=== PATIENT | female | born 1980 | race Caucasian/White ===

== ENCOUNTER 2017-11-03 14:52 | Inpatient (IN) | payer OTHER ==
[2017-11-03 16:49] VITALS: BMI 20.9
--- NOTE | 2017-11-03 18:55 | HP ---
CIWA Score - CIWA Score Nausea/Vomitin Muscle Tremors: 2 Anxiety: 1-Mildly Anxious Agitation: 2 Paroxysmal Sweats: 1-Minimal Palms Moist Orientation: 0-Oriented Tacttile Disturbances: 0-None Auditory Disturbances: 0-None Visual Disturbances: 2-Mild Sensitivity Headache: 2-Mild CIWA-Ar Total Score: 13 Admission ROS BHS - HPI Chief Complaint: " I am here for rehab, my stomach hurts." Allergies/Adverse Reactions: Allergies Allergy/AdvReac Type Severity Reaction Status Date / Time ciprofloxacin [From Cipro] Allergy Verified 11/03/17 17:32 haloperidol [From Haldol] AdvReac Verified 11/03/17 17:32 History of Present Illness: 37 yo female with hx of alcohol dependence is here seeking detox. PMHX: ulcerative colitis, asthma, alcohol induced seizure, depression, anxiety, PTSD, bipolar. Currently denies suicidal / homicidal ideation . Reports hx of suicide attempt by walking into traffic two years ago. Last detox at [facility] 2 years ago. Exam Limitations: No Limitations - Ebola screening Have you traveled outside of the country in the last 21 days: No Have you had contact with anyone from an Ebola affected area: No Have you been sick,other than usual withdrawal symptoms: No Do you have a fever: No - Review of Systems Constitutional: Loss of Appetite, Changes in sleep, Other (weight fluctuates) EENT: reports: No Symptoms Reported Respiratory: reports: No Symptoms reported Cardiac: reports: Palpitations GI: reports: Constipated (last BM three days ago), Nausea, Poor Appetite, Poor Fluid Intake, Indigestion, Abdominal cramping : reports: Frequency (for two day) Musculoskeletal: reports: No Symptoms Reported Integumentary: reports: No Symptoms Reported Neuro: reports: See HPI, Headache, Seizure Endocrine: reports: Increased Thirst Hematology: reports: Anemia Psychiatric: reports: Orientated x3, Depressed Other Systems: Reviewed and Negative Patient History - Patient Medical History Hx Anemia: Yes Hx Asthma: Yes Hx Chronic Obstructive Pulmonary Disease (COPD): No Hx Cancer: No Hx Cardiac Disorders: No Hx Congestive Heart Failure: No Hx Hypertension: No Hx Hypercholesterolemia: No Hx Pacemaker: No HX Cerebrovascular Accident: No Hx Seizures: Yes (R/T ALCOHOL 06/2017) Hx Dementia: No Hx Diabetes: No Hx Gastrointestinal Disorders: No Hx Liver Disease: No Hx Genitourinary Disorders: No Hx Sexually Transmitted Disorders: No Hx Renal Disease (ESRD): No Hx Thyroid Disease: No Hx Human Immunodeficiency Virus (HIV): No (2 years ago ) Hx Hepatitis C: No Hx Depression: Yes Hx Suicide Attempt: Yes (2 years ago ) Hx Bipolar Disorder: Yes Hx Schizophrenia: No - Patient Surgical History Past Surgical History: No Hx Neurologic Surgery: No Hx Cataract Extraction: No Hx Cardiac Surgery: No Hx Lung Surgery: No Hx Breast Surgery: No Hx Breast Biopsy: No Hx Abdominal Surgery: No Hx Appendectomy: No Hx Cholecystectomy: No Hx Genitourinary Surgery: No Hx Section: No Hx Orthopedic Surgery: No Hx Hysterectomy: No - PPD History Previous Implant?: No Documented Results: Negative w/o proof PPD to be Administered?: Yes - Reproductive History Patient is a Female of Child Bearing Age (11 -55 yrs old): Yes Patient : No - Smoking Cessation Smoking history: Never smoked Hx Chewing Tobacco Use: No Initiated information on smoking cessation: No - Substances Abused Alcohol Route: Oral Frequency: Daily Amount used: 09/06OZ uTrack TVS Age of first use: 15 Date of Last Use: 11/03/17 Family Disease History - Family Disease History Family History: Unable to Obtain Admission Physical Exam BHS - Vital Signs Vital Signs: Vital Signs - 24 hr 11/03/17 16:45 Temperature 99 F Pulse Rate 80 Respiratory 18 Rate Blood Pressure 116/63 - Physical General Appearance: Yes: Thin, Anxious HEENTM: Yes: EOMI, Hearing grossly Normal, Normal ENT Inspection, Normocephalic , Normal Voice, Pharynx Normal, Tm's normal, Other (chelithis) Respiratory: Yes: Chest Non-Tender, Lungs Clear, Normal Breath Sounds, No Respiratory Distress, No Accessory Muscle Use Neck: Yes: No masses,lesions,Nodules, Trachea in good position Breast: Yes: Breast Exam Deferred Cardiology: Yes: Regular Rhythm, Regular Rate Abdominal: Yes: Normal Bowel Sounds, Non Tender, Flat, Soft Genitourinary: Yes: Frequency Back: Yes: Normal Inspection Musculoskeletal: Yes: full range of Motion, Gait Steady, Pelvis Stable Extremities: Yes: Normal Capillary Refill, Normal Inspection, Normal Range of Motion, Non-Tender 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: Yes: clip and hanger attacher II-XII NML intact, Fully Oriented, Alert, Motor Strength 5/5, Depressed Affect Integumentary: Yes: Normal Color, Warm, Moist Lymphatic: Yes: Within Normal Limits - Diagnostic (1) Alcohol dependence with withdrawal Current Visit: Yes Status: Acute Qualifiers: Complication of substance-induced condition: uncomplicated Qualified Code(s ): F10.230 - Alcohol dependence with withdrawal, uncomplicated (2) Weight loss Current Visit: Yes Status: Acute (3) Ulcerative colitis Current Visit: Yes Status: Chronic Qualifiers: Ulcerative colitis location: unspecified ulcerative colitis location Digestive disease complication type: unspecified complication Qualified Code(s ): K51.919 - Ulcerative colitis, unspecified with unspecified complications (4) Depression (emotion) Current Visit: Yes Status: Acute Qualifiers: Depression Type: dysthymia Qualified Code(s): F34.1 - Dysthymic disorder (5) Asthma Current Visit: Yes Status: Acute Qualifiers: Asthma severity: mild Asthma persistence: intermittent Asthma complication type: with acute exacerbation Qualified Code(s): J45.21 - Mild intermittent asthma with (acute) exacerbation (6) Alcohol related seizure Current Visit: Yes Status: Acute Cleared for Admission BHS - Detox or Rehab [facility] Level of Care: Medically Managed Detox Regimen/Protocol: Librium [facility] Breath Alcohol Content Breath Alcohol Content: 0 Urine Pregancy Test - Result Urine Test Results: Negative- NO Line Present Urine Drug Screen - Results Drug Screen Negative: Yes
[2017-11-03] MEDS ORDERED: MAGNESIUM CITRATE 300 ML BOTTLE PO PRN (18:57)
[2017-11-03] MEDS ORDERED: P-EPHED 60MG/TRIPROLIDI 2.5MG TABLET PO PRN (18:57)
[2017-11-03] MEDS ORDERED: MAG HYDROX/AL HYDROX/SIMETH 30 ML UNIT-DOSE CUP PO PRN (18:57)
[2017-11-03] MEDS ORDERED: chlordiazePOXIDE HCL 25 MG CAPSULE PO ONE (18:57)
[2017-11-03] MEDS ORDERED: MAGNESIUM HYDROX 2400MG/30ML ORAL SUSPENSION 30 ML CUP PO PRN (18:57)
[2017-11-03] MEDS ORDERED: hydrOXYzine PAMOATE 50 MG CAPSULE (FP) PO PRN (18:57)
[2017-11-03] MEDS ORDERED: chlordiazePOXIDE HCL 25 MG CAPSULE PO PRN (18:57)
[2017-11-03] MEDS ORDERED: LOPERAMIDE HCL 2 MG CAPSULE PO PRN (18:57)
[2017-11-03] MEDS ORDERED: guaiFENesin/D-METHORPHAN HB 10 ML UNIT-DOSE CUPS PO PRN (18:57)
[2017-11-03] MEDS ORDERED: IBUPROFEN 400 MG TABLET (FP) PO PRN (18:57)
[2017-11-03] MEDS ORDERED: MENTHOL/PHENOL 1 EACH UD MM PRN (18:57)
[2017-11-03] MEDS ORDERED: ACETAMINOPHEN 325 MG TABLET (FP) PO PRN (18:57)
[2017-11-03] MEDS ORDERED: diphenhydrAMINE HCL 25 MG CAPSULE (FP) PO PRN (19:00)
[2017-11-03] MEDS ORDERED: ALBUTEROL SO4 18 GM HFA INHALER IH PRN (19:01)
[2017-11-03] MEDS ORDERED: ALBUTEROL SO4 0.083% IH SOL 2.5 MG/3 ML VIAL.NEB. NEB PRN (19:01)
[2017-11-03] MEDS ORDERED: PANTOPRAZOLE 20 MG TABLET (FP) PO SCH (19:15)
[2017-11-03] MEDS ORDERED: MELATONIN 5 MG TABLETS PO PRN (22:00)
[2017-11-03] MEDS ORDERED: THIAMINE HCL 100 MG TABLET (FP) PO SCH (22:00)
[2017-11-03] MEDS: chlordiazePOXIDE HCL 25 MG CAPSULE PO SCH (22:25)
--- NOTE | 2017-11-03 23:10 | PN ---
S Progress Note Note: c/o of constipation and difficulty moving her bowels. Refuse milk of magnesia. Vital Signs Period Temp Pulse Resp BP Sys/Vincent Pulse Ox Last 24 Hr 97.9 F-99 F 67-80 18-18 116-118/63-79 Increase fluids senna and Colace order continue to monitor
[2017-11-03] MEDS ORDERED: SENNOSIDES 8.6MG TABLET (FP) PO SCH (23:15)
[2017-11-03 23:19] LABS: URINE APPEARANCE SLCLOUDY; URINE BILIRUBIN NEGATIVE (<2.0 mg/dL); URINE COLOR LTYELLOW; URINE GLUCOSE (UA) NEGATIVE (NEGATIVE); URINE KETONE TRACE (NEGATIVE); URINE LEUK ESTERASE NEGATIVE (NEGATIVE); URINE NITRITE NEGATIVE (NEGATIVE); URINE PROTEIN NEGATIVE (NEGATIVE); URINE UROBILINOGEN NEGATIVE mg/dL (0.2-1.0)
[2017-11-03 23:35] LABS: EPI CELLS MODERATE /HPF (FEW); URINE BACTERIA RARE /hpf (NONE SEEN); URINE MUCUS RARE
[2017-11-03] MEDS: DOCUSATE SODIUM 100 MG CAPSULE (FP) PO SCH (23:45)
[2017-11-04] MEDS: chlordiazePOXIDE HCL 25 MG CAPSULE PO SCH (05:13)
[2017-11-04 06:13] VITALS: TEMP 97.7
[2017-11-04] MEDS: DOCUSATE SODIUM 100 MG CAPSULE (FP) PO SCH ×2 (07:36→07:40)
[2017-11-04 09:13] VITALS: BP 107/66; PULSE 90
[2017-11-04] MEDS ORDERED: PRENATAL VITAMINS W/ FOLIC ACID TABLET (FP) PO SCH (10:00)
[2017-11-04 10:16] LABS: HEMATOCRIT 33.1 % (32.4-45.2); HEMOGLOBIN 11.3 GM/dL (10.7-15.3); MCH 29.2 pg (25.7-33.7); MEAN CELL VOLUME 85.8 fl (80-96); MEAN PLT VOLUME 9.4 fl (7.5-11.1); PLATELET COUNT 289 K/MM3 (134-434); RBC 3.86 M/mm3 (3.60-5.2); RDW 15.7 % (11.6-15.6); WHITE BLOOD COUNT 7.8 K/mm3 (4.0-10.0)
[2017-11-04 10:29] LABS: CHLORIDE 102 mmol/L (98-107); POTASSIUM 3.6 mmol/L (3.5-5.1); SODIUM 139 mmol/L (136-145)
--- NOTE | 2017-11-04 10:34 | CONSULT ---
[facility] Psychiatric Consult - Data Date of interview: 11/04/17 Admission source: [facility] Identifying data: Patient is a 37 year old single female, mother of two, unemployed, and resides in a correction. This is patient's first admission to [facility]. Patient admitted to for alcohol dependence. Substance Abuse History: Smoking Cessation. Smoking history: Never smoked. Hx Chewing Tobacco Use: No. Initiated information on smoking cessation: No. - Substances Abused. Alcohol. Route: Oral. Frequency: Daily. Amount used: 09/06OZ BEERS. Age of first use: 15. Date of Last Use: 11/03/17 Medical History: Anemia, Asthma, Seizures (r/t alcohol 06/2007) Psychiatric History: Pt. reports one psychiatric hospitalization "a long time ago" at [facility] approximately 2 years ago. Pt. is nonadherent to medications and outpatient care. As per pharmacy claims patient has been prescribed zoloft+ seroquel+ risperdal. Pt. rushing through interview. Stating to loan underwriter, " can i go now. I want to sign out and leave." Pt. denies h/o suicide attempt. Physical/Sexual Abuse/Trauma History: Denies. Mental Status Exam - Mental Status Exam Alert and Oriented to: Time, Place, Person Cognitive Function: Good Patient Appearance: Well Groomed Mood: Withdrawn, Irritable (rushing through assessment. stating she wants to leave.) Affect: Mood Congruent Patient Behavior: Guarded, Cooperative Speech Pattern: Appropriate Voice Loudness: Normal Thought Process: Goal Oriented Thought Disorder: Not Present Hallucinations: Denies Suicidal Ideation: Denies Homicidal Ideation: Denies Insight/Judgement: Poor Sleep: Fair Appetite: Fair Muscle strength/Tone: Normal Gait/Station: Normal Psychiatric Findings - Problem List ([place] 1, 2,3) (1) Substance induced mood disorder Status: Acute (2) Alcohol dependence with withdrawal Status: Acute Qualifiers: Complication of substance-induced condition: uncomplicated Qualified Code(s ): F10.230 - Alcohol dependence with withdrawal, uncomplicated - Initial Treatment Plan Initial Treatment Plan: Psychoeducation provided. Detoxification in progress. Observation.
[2017-11-04 10:44] LABS: ALBUMIN 3.4 g/dl (3.4-5.0); ALK PHOS 108 U/L (45-117); ANION GAP 12 (8-16); BILIRUBIN,TOTAL 0.3 mg/dL (0.2-1.0); BLOOD UREA NITROGEN 10 mg/dL (7-18); CO2 25 mmol/L (21-32); CREATININE 0.7 mg/dL (0.55-1.02); GLUCOSE,RANDOM 98 mg/dL (74-106); SGOT/AST 20 U/L (15-37); SGPT/ALT 12 U/L (12-78); TOT PROT 6.9 g/dl (6.4-8.2)
--- NOTE | 2017-11-04 11:39 | PN ---
S CIWA - CIWA Score Nausea/Vomitin Muscle Tremors: 3 Anxiety: 2 Agitation: 2 Paroxysmal Sweats: 1-Minimal Palms Moist Orientation: 0-Oriented Tacttile Disturbances: 1-Very Mild Itch/Numbness Auditory Disturbances: 1-Very Mild Visual Disturbances: 0-None Headache: 2-Mild CIWA-Ar Total Score: 15 BHS Progress Note (SOAP) Subjective: ALERT,IRRITABLE,ANXIOUS,INTERRUPTED SLEEP,TREMOR Objective: 11/04/17 11:36 Vital Signs Temperature 97.7 F 11/04/17 09:12 Pulse Rate 90 11/04/17 09:12 Respiratory Rate 16 11/04/17 09:12 Blood Pressure 107/66 11/04/17 09:12 O2 Sat by Pulse Oximetry (%) EKG NSR NORMAL ECG PROLONG QT446/460 11/04/17 11:38 Laboratory Last Values WBC 7.8 K/mm3 (4.0-10.0) 11/04/17 07:00 RBC 3.86 M/mm3 (3.60-5.2) 11/04/17 07:00 Hgb 11.3 GM/dL (10.7-15.3) 11/04/17 07:00 Hct 33.1 % (32.4-45.2) 11/04/17 07:00 MCV 85.8 fl (80-96) 11/04/17 07:00 MCH 29.2 pg (25.7-33.7) 11/04/17 07:00 MCHC 34.0 g/dl (32.0-36.0) 11/04/17 07:00 RDW 15.7 % (11.6-15.6) H 11/04/17 07:00 Plt Count 289 K/MM3 (134-434) 11/04/17 07:00 MPV 9.4 fl (7.5-11.1) 11/04/17 07:00 Sodium 139 mmol/L (136-145) 11/04/17 07:00 Potassium 3.6 mmol/L (3.5-5.1) 11/04/17 07:00 Chloride 102 mmol/L (98-107) 11/04/17 07:00 Carbon Dioxide 25 mmol/L (21-32) 11/04/17 07:00 Anion Gap 12 (8-16) 11/04/17 07:00 BUN 10 mg/dL (7-18) 11/04/17 07:00 Creatinine 0.7 mg/dL (0.55-1.02) 11/04/17 07:00 Creat Clearance w eGFR > 60 (>60) 11/04/17 07:00 Random Glucose 98 mg/dL (74-106) 11/04/17 07:00 Calcium 9.0 mg/dL (8.5-10.1) 11/04/17 07:00 Total Bilirubin 0.3 mg/dL (0.2-1.0) 11/04/17 07:00 AST 20 U/L (15-37) 11/04/17 07:00 ALT 12 U/L (12-78) 11/04/17 07:00 Alkaline Phosphatase 108 U/L (45-117) 11/04/17 07:00 Total Protein 6.9 g/dl (6.4-8.2) 11/04/17 07:00 Albumin 3.4 g/dl (3.4-5.0) 11/04/17 07:00 Urine Color Ltyellow 11/03/17 23:00 Urine Appearance Slcloudy 11/03/17 23:00 Urine pH 6.0 (5.0-8.0) 11/03/17 23:00 Ur Specific [place] 1.014 (1.001-1.035) 11/03/17 23:00 Urine Protein Negative (NEGATIVE) 11/03/17 23:00 Urine Glucose (UA) Negative (NEGATIVE) 11/03/17 23:00 Urine Ketones Trace (NEGATIVE) H 11/03/17 23:00 Urine Blood 2+ (NEGATIVE) H 11/03/17 23:00 Urine Nitrite Negative (NEGATIVE) 11/03/17 23:00 Urine Bilirubin Negative (<2.0 mg/dL) 11/03/17 23:00 Urine Urobilinogen Negative mg/dL (0.2-1.0) 11/03/17 23:00 Ur Leukocyte Esterase Negative (NEGATIVE) 11/03/17 23:00 Urine WBC (Auto) 2 /hpf (3-5) 11/03/17 23:00 Urine RBC (Auto) 1 /hpf (0-3) 11/03/17 23:00 Ur Epithelial Cells Moderate /HPF (FEW) 11/03/17 23:00 Urine Bacteria Rare /hpf (NONE SEEN) 11/03/17 23:00 Urine Mucus Rare 11/03/17 23:00 Assessment: 11/04/17 11:37 WITHDRAWAL SYMPTOM Plan: CONTINUE TREATMENT
--- NOTE | 2017-11-04 11:44 | DS ---
[facility] Detox Discharge Summary Admission Date: 11/03/17 Discharge Date: 11/04/17 - History Present History: Alcohol Dependence Additional Comments: PATIENT DID NOT WANT TO COMPLETE TREATMENT,SIGNED RELEASE AMA Pertinent Past History: ASTHMA ALCOHOL RELATED SEIZURE WEIGHT LOSS ULCERATIVE COLITIS SUBSTANCE INDUCED MOOD DISORDER - Physical Exam Results Vital Signs: Vital Signs Temperature 97.7 F 11/04/17 09:12 Pulse Rate 90 11/04/17 09:12 Respiratory Rate 16 11/04/17 09:12 Blood Pressure 107/66 11/04/17 09:12 O2 Sat by Pulse Oximetry (%) Pertinent Admission Physical Exam Findings: WITHDRAWAL SIGNS AND SYMPTOM Laboratory Last Values WBC 7.8 K/mm3 (4.0-10.0) 11/04/17 07:00 RBC 3.86 M/mm3 (3.60-5.2) 11/04/17 07:00 Hgb 11.3 GM/dL (10.7-15.3) 11/04/17 07:00 Hct 33.1 % (32.4-45.2) 11/04/17 07:00 MCV 85.8 fl (80-96) 11/04/17 07:00 MCH 29.2 pg (25.7-33.7) 11/04/17 07:00 MCHC 34.0 g/dl (32.0-36.0) 11/04/17 07:00 RDW 15.7 % (11.6-15.6) H 11/04/17 07:00 Plt Count 289 K/MM3 (134-434) 11/04/17 07:00 MPV 9.4 fl (7.5-11.1) 11/04/17 07:00 Sodium 139 mmol/L (136-145) 11/04/17 07:00 Potassium 3.6 mmol/L (3.5-5.1) 11/04/17 07:00 Chloride 102 mmol/L (98-107) 11/04/17 07:00 Carbon Dioxide 25 mmol/L (21-32) 11/04/17 07:00 Anion Gap 12 (8-16) 11/04/17 07:00 BUN 10 mg/dL (7-18) 11/04/17 07:00 Creatinine 0.7 mg/dL (0.55-1.02) 11/04/17 07:00 Creat Clearance w eGFR > 60 (>60) 11/04/17 07:00 Random Glucose 98 mg/dL (74-106) 11/04/17 07:00 Calcium 9.0 mg/dL (8.5-10.1) 11/04/17 07:00 Total Bilirubin 0.3 mg/dL (0.2-1.0) 11/04/17 07:00 AST 20 U/L (15-37) 11/04/17 07:00 ALT 12 U/L (12-78) 11/04/17 07:00 Alkaline Phosphatase 108 U/L (45-117) 11/04/17 07:00 Total Protein 6.9 g/dl (6.4-8.2) 11/04/17 07:00 Albumin 3.4 g/dl (3.4-5.0) 11/04/17 07:00 Urine Color Ltyellow 11/03/17 23:00 Urine Appearance Slcloudy 11/03/17 23:00 Urine pH 6.0 (5.0-8.0) 11/03/17 23:00 Ur Specific [place] 1.014 (1.001-1.035) 11/03/17 23:00 Urine Protein Negative (NEGATIVE) 11/03/17 23:00 Urine Glucose (UA) Negative (NEGATIVE) 11/03/17 23:00 Urine Ketones Trace (NEGATIVE) H 11/03/17 23:00 Urine Blood 2+ (NEGATIVE) H 11/03/17 23:00 Urine Nitrite Negative (NEGATIVE) 11/03/17 23:00 Urine Bilirubin Negative (<2.0 mg/dL) 11/03/17 23:00 Urine Urobilinogen Negative mg/dL (0.2-1.0) 11/03/17 23:00 Ur Leukocyte Esterase Negative (NEGATIVE) 11/03/17 23:00 Urine WBC (Auto) 2 /hpf (3-5) 11/03/17 23:00 Urine RBC (Auto) 1 /hpf (0-3) 11/03/17 23:00 Ur Epithelial Cells Moderate /HPF (FEW) 11/03/17 23:00 Urine Bacteria Rare /hpf (NONE SEEN) 11/03/17 23:00 Urine Mucus Rare 11/03/17 23:00 - Medication Discharge Medications: Ambulatory Orders Quetiapine Fumarate [Seroquel -] 50 mg PO HS 11/03/17 Sertraline HCl [Zoloft -] 50 mg PO DAILY 11/03/17 - Diagnosis (1) Alcohol dependence with withdrawal Current Visit: Yes Status: Acute Qualifiers: Complication of substance-induced condition: uncomplicated Qualified Code(s ): F10.230 - Alcohol dependence with withdrawal, uncomplicated (2) Alcohol related seizure Current Visit: Yes Status: Acute (3) Asthma Current Visit: Yes Status: Acute Qualifiers: Asthma severity: mild Asthma persistence: intermittent Asthma complication type: with acute exacerbation Qualified Code(s): J45.21 - Mild intermittent asthma with (acute) exacerbation (4) Substance induced mood disorder Current Visit: Yes Status: Acute (5) Weight loss Current Visit: Yes Status: Acute (6) Ulcerative colitis Current Visit: Yes Status: Chronic Qualifiers: Ulcerative colitis location: unspecified ulcerative colitis location Digestive disease complication type: unspecified complication Qualified Code(s ): K51.919 - Ulcerative colitis, unspecified with unspecified complications - AMA Did Patient Leave Against Medical Advice: Yes
[2017-11-04] MEDS ORDERED: chlordiazePOXIDE HCL 25 MG CAPSULE PO SCH (23:00)
--- NOTE | 2017-11-05 08:24 | EKG ---
Test Reason : Blood Pressure : / mmHG Vent. Rate : 064 BPM Atrial Rate : 064 BPM P-R Int : 158 ms QRS Dur : 100 ms QT Int : 446 ms P-R-T Axes : 073 086 058 degrees QTc Int : 460 ms NORMAL SINUS RHYTHM NORMAL ECG NO PREVIOUS ECGS AVAILABLE Confirmed by ROMA GUEVARA, YOVANI ([id number]) on 11/05/2017 8:23:26 AM Referred By: Confirmed By:YOVANI BRANDON MD
[2017-11-05] MEDS ORDERED: chlordiazePOXIDE 5 MG CAPSULE PO SCH (23:00)
[2017-11-06] MEDS ORDERED: chlordiazePOXIDE HCL 10 MG CAPSULE PO SCH (23:00)
== END 2017-11-04 12:00 | disposition left against medical advice (07) | DRG 770 ==
LOC: YASAS 14:52 → Y6N 17:36
PROVIDERS: ADMIT Surgery; ATTEND Surgery
PROC: HZ2ZZZZ Detoxification Services for Substance Abuse Treatment (ICD-10-PCS; principal; 2017-11-03)
DX: F10.230 Alcohol dependence with withdrawal, uncomplicated (principal); F19.24 Other psychoactive substance dependence with psychoactive substance-induced mood disorder; F34.1 Dysthymic disorder; F31.9 Bipolar disorder, unspecified; G40.509 Epileptic seizures related to external causes, not intractable, without status epilepticus; K51.919 Ulcerative colitis, unspecified with unspecified complications; R63.4 Abnormal weight loss; Z68.21 Body mass index [BMI] 21.0-21.9, adult; Z91.5 Personal history of self-harm
CPT/HCPCS: 36415; 80053; 81003; 81015; 85027; 86593; 87389; 93005; 93010

== ENCOUNTER 2018-02-27 09:20 | Inpatient (IN) | payer OTHER ==
[2018-02-27 10:16] VITALS: BMI 21.5
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
[2018-02-27] MEDS ORDERED: ACETAMINOPHEN 325 MG TABLET (FP) PO PRN (12:14)
[2018-02-27] MEDS ORDERED: chlordiazePOXIDE HCL 25 MG CAPSULE PO PRN (12:14)
[2018-02-27] MEDS ORDERED: MAGNESIUM CITRATE 300 ML BOTTLE PO PRN (12:14)
[2018-02-27] MEDS ORDERED: guaiFENesin/D-METHORPHAN HB 10 ML UNIT-DOSE CUPS PO PRN (12:14)
[2018-02-27] MEDS ORDERED: P-EPHED 60MG/TRIPROLIDI 2.5MG TABLET PO PRN (12:14)
[2018-02-27] MEDS ORDERED: NICOTINE POLACRILEX 2 MG GUM BUC PRN (12:14)
[2018-02-27] MEDS ORDERED: MAGNESIUM HYDROX 2400MG/30ML ORAL SUSPENSION 30 ML CUP PO PRN (12:14)
[2018-02-27] MEDS ORDERED: hydrOXYzine PAMOATE 50 MG CAPSULE (FP) PO PRN (12:14)
[2018-02-27] MEDS ORDERED: MAG HYDROX/AL HYDROX/SIMETH 30 ML UNIT-DOSE CUP PO PRN (12:14)
[2018-02-27] MEDS ORDERED: LOPERAMIDE HCL 2 MG CAPSULE PO PRN (12:14)
[2018-02-27] MEDS ORDERED: MENTHOL/PHENOL 1 EACH UD MM PRN (12:14)
[2018-02-27] MEDS ORDERED: ALBUTEROL SO4 8 GM HFA INHALER IH PRN (12:23)
--- NOTE | 2018-02-27 12:25 | PN ---
BHS Progress Note Note: Nicotine patch not ordered because pt stated she does not need it, states she smokes about 3 cigarettes "once in a while, so don't need it"
[2018-02-27] MEDS ORDERED: ERGOCALCIFEROL (VITAMIN D2) 50,000 UNIT CAPSULE (FP) PO SCH (12:30)
[2018-02-27] MEDS ORDERED: PATIENT'S OWN MEDICATION (NON-FORMULARY) (Mesalamine [Apriso] 0.375 GM) PO SCH (12:30)
[2018-02-27] MEDS: levETIRAcetam 500 MG TABLET (FP) PO SCH ×2 (14:17→22:02)
--- NOTE | 2018-02-27 16:03 | PN ---
[facility] Progress Note Note: patient does not have apriiso upon admission case discuss with pharmacist that replacement may consider patient refuses enema and suppository formular case discuss with the pharmacist that the oral form can be ordered but takes few days waiting for pharmacy order status
[2018-02-27] MEDS: chlordiazePOXIDE HCL 25 MG CAPSULE PO SCH ×3 (17:22→22:02)
[2018-02-27] MEDS: IBUPROFEN 400 MG TABLET (FP) PO PRN (17:41)
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
[2018-02-27] MEDS ORDERED: MESALAMINE 800 MG TABLET.DR PO SCH (20:00)
[2018-02-27 20:54] LABS: URINE APPEARANCE CLOUDY; URINE BILIRUBIN NEGATIVE (<2.0 mg/dL); URINE COLOR AMBER; URINE GLUCOSE (UA) NEGATIVE (NEGATIVE); URINE KETONE TRACE (NEGATIVE); URINE LEUK ESTERASE NEGATIVE (NEGATIVE); URINE NITRITE NEGATIVE (NEGATIVE); URINE PROTEIN NEGATIVE (NEGATIVE); URINE UROBILINOGEN NEGATIVE mg/dL (0.2-1.0)
[2018-02-27] MEDS ORDERED: THIAMINE HCL 100 MG TABLET (FP) PO SCH (22:00)
[2018-02-27] MEDS ORDERED: MELATONIN 5 MG TABLETS PO PRN (22:00)
[2018-02-28] MEDS: IBUPROFEN 400 MG TABLET (FP) PO PRN (03:41)
[2018-02-28] MEDS ORDERED: MESALAMINE 800 MG TABLET.DR PO SCH (06:00)
[2018-02-28] MEDS: chlordiazePOXIDE HCL 25 MG CAPSULE PO SCH ×2 (07:24→10:54)
[2018-02-28 09:57] VITALS: BP 98/65; PULSE 112; TEMP 98.4
[2018-02-28] MEDS ORDERED: PRENATAL VITAMINS W/ FOLIC ACID TABLET (FP) PO SCH (10:00)
--- NOTE | 2018-02-28 10:02 | CONSULT ---
[facility] Psychiatric Consult - Data Date of interview: 02/28/18 Admission source: [facility] Identifying data: [facility] Dentist approached patient for psychiatric consultation. Pt. stated, " I don't need to speak to you. i'm leaving."
[2018-02-28 10:13] LABS: HEMATOCRIT 29.3 % (32.4-45.2); HEMOGLOBIN 9.5 GM/dL (10.7-15.3); MCH 27.2 pg (25.7-33.7); MCHC 32.3 g/dl (32.0-36.0); MEAN CELL VOLUME 84.1 fl (80-96); MEAN PLT VOLUME 9.2 fl (7.5-11.1); PLATELET COUNT 301 K/MM3 (134-434); RBC 3.48 M/mm3 (3.60-5.2); RDW 16.5 % (11.6-15.6); WHITE BLOOD COUNT 10.8 K/mm3 (4.0-10.0)
[2018-02-28] MEDS: levETIRAcetam 500 MG TABLET (FP) PO SCH (10:54)
[2018-02-28 11:05] LABS: ALBUMIN 2.5 g/dl (3.4-5.0); ANION GAP 9 MMOL/L (8-16); BLOOD UREA NITROGEN 8 mg/dL (7-18); CHLORIDE 103 mmol/L (98-107); CO2 28 mmol/L (21-32); CREATININE 0.6 mg/dL (0.55-1.02); GLUCOSE,RANDOM 88 mg/dL (74-106); POTASSIUM 3.3 mmol/L (3.5-5.1); SGOT/AST 30 U/L (15-37); SGPT/ALT 18 U/L (12-78); SODIUM 140 mmol/L (136-145)
[2018-02-28 11:06] LABS: ALK PHOS 96 U/L (45-117); BILIRUBIN,TOTAL 0.5 mg/dL (0.2-1.0); TOT PROT 6.4 g/dl (6.4-8.2)
--- NOTE | 2018-02-28 13:30 | DS ---
[facility] Detox Discharge Summary Admission Date: 02/27/18 Discharge Date: 02/28/18 - History Present History: Opioid Dependence Additional Comments: 37 YEARS OLD FEMALE ADMITTED ON 02/27/18 FOR ALCOHOL WITHDRAWAL SX INSISTS TO LEAVE THE DETOX FACILITY "I CAN NOT STAY HERE" PATIENT WANTS TO JOINING A FAMILY MEMBER IN A HOUR PATIENT RUSHED TO GO AND HESITATED TO DISCUSS ADDICTION TREATMENT FURTHER - Physical Exam Results Vital Signs: Vital Signs Temperature 98.4 F 02/28/18 09:56 Pulse Rate 112 H 02/28/18 09:56 Respiratory Rate 18 02/28/18 09:56 Blood Pressure 98/65 02/28/18 09:56 O2 Sat by Pulse Oximetry (%) Pertinent Admission Physical Exam Findings: OPIATE WITHDRAWAL SX Vital Signs Temperature 98.4 F 02/28/18 09:56 Pulse Rate 112 H 02/28/18 09:56 Respiratory Rate 18 02/28/18 09:56 Blood Pressure 98/65 02/28/18 09:56 O2 Sat by Pulse Oximetry (%) Laboratory Last Values WBC 10.8 K/mm3 (4.0-10.0) H 02/28/18 07:00 RBC 3.48 M/mm3 (3.60-5.2) L 02/28/18 07:00 Hgb 9.5 GM/dL (10.7-15.3) L 02/28/18 07:00 Hct 29.3 % (32.4-45.2) L 02/28/18 07:00 MCV 84.1 fl (80-96) 02/28/18 07:00 MCH 27.2 pg (25.7-33.7) 02/28/18 07:00 MCHC 32.3 g/dl (32.0-36.0) 02/28/18 07:00 RDW 16.5 % (11.6-15.6) H 02/28/18 07:00 Plt Count 301 K/MM3 (134-434) 02/28/18 07:00 MPV 9.2 fl (7.5-11.1) 02/28/18 07:00 Sodium 140 mmol/L (136-145) 02/28/18 07:00 Potassium 3.3 mmol/L (3.5-5.1) L 02/28/18 07:00 Chloride 103 mmol/L (98-107) 02/28/18 07:00 Carbon Dioxide 28 mmol/L (21-32) 02/28/18 07:00 Anion Gap 9 MMOL/L (8-16) 02/28/18 07:00 BUN 8 mg/dL (7-18) 02/28/18 07:00 Creatinine 0.6 mg/dL (0.55-1.02) 02/28/18 07:00 Creat Clearance w eGFR > 60 (>60) 02/28/18 07:00 Random Glucose 88 mg/dL (74-106) 02/28/18 07:00 Calcium 8.0 mg/dL (8.5-10.1) L 02/28/18 07:00 Total Bilirubin 0.5 mg/dL (0.2-1.0) 02/28/18 07:00 AST 30 U/L (15-37) 02/28/18 07:00 ALT 18 U/L (12-78) 02/28/18 07:00 Alkaline Phosphatase 96 U/L (45-117) 02/28/18 07:00 Total Protein 6.4 g/dl (6.4-8.2) 02/28/18 07:00 Albumin 2.5 g/dl (3.4-5.0) L 02/28/18 07:00 Urine Color Dipti 02/27/18 15:45 Urine Appearance Cloudy 02/27/18 15:45 Urine pH 5.0 (5.0-8.0) 02/27/18 15:45 Ur Specific [place] 1.024 (1.001-1.035) 02/27/18 15:45 Urine Protein Negative (NEGATIVE) 02/27/18 15:45 Urine Glucose (UA) Negative (NEGATIVE) 02/27/18 15:45 Urine Ketones Trace (NEGATIVE) H 02/27/18 15:45 Urine Blood Negative (NEGATIVE) 02/27/18 15:45 Urine Nitrite Negative (NEGATIVE) 02/27/18 15:45 Urine Bilirubin Negative (<2.0 mg/dL) 02/27/18 15:45 Urine Urobilinogen Negative mg/dL (0.2-1.0) 02/27/18 15:45 Ur Leukocyte Esterase Negative (NEGATIVE) 02/27/18 15:45 RPR Titer Nonreactive (NONREACTIVE) 02/28/18 07:00 HIV 1&2 Antibody Screen Negative 02/28/18 07:00 HIV P24 Antigen Negative 02/28/18 07:00 LAB NOTED REPORT LAST SEIZURE 3 YEARS AGO LAST FILLED SEIZURE MEDICATION ON NOVEMBER X 30 DAYS SUPPLY - Treatment Hospital Course: Detox Protocol Followed, Responded well Patient has Accepted a Rehab Referral to: [facility] - Medication Discharge Medications: Ambulatory Orders Quetiapine Fumarate [Seroquel -] 100 mg PO HS 11/03/17 Sertraline HCl [Zoloft -] 50 mg PO DAILY 11/03/17 Diphenhydramine [Benadryl Capsule -] 50 mg PO DAILY PRN 02/27/18 Ergocalciferol [Vitamin D2] 50,000 unit PO WEEKLY 02/27/18 Mesalamine [Apriso] 0.375 gm PO DAILY 02/27/18 Prazosin HCl 1 mg PO HS 02/27/18 Psyllium Seed (with Sugar) [Natural Fiber Lax Powder] 538 gm IA DAILY 02/27/18 Risperidone [Risperdal -] 1 mg PO DAILY 02/27/18 Albuterol Sulfate Inhaler - [Ventolin HFA Inhaler -] 1 - 2 inh PO Q4H PRN #1 inhaler 02/28/18 Albuterol Sulfate Inhaler - [Ventolin HFA Inhaler -] 2 puff IH Q4H PRN #1 inhaler 02/28/18 levETIRAcetam [Keppra -] 500 mg PO BID #60 tablet 02/28/18 - Diagnosis (1) Seizure Status: Chronic (2) Alcohol dependence with withdrawal Status: Acute Qualifiers: Complication of substance-induced condition: uncomplicated Qualified Code(s ): F10.230 - Alcohol dependence with withdrawal, uncomplicated (3) Asthma Status: Chronic Qualifiers: Asthma severity: mild Asthma persistence: intermittent Asthma complication type: with acute exacerbation Qualified Code(s): J45.21 - Mild intermittent asthma with (acute) exacerbation - AMA Did Patient Leave Against Medical Advice: Yes
--- NOTE | 2018-02-28 16:33 | EKG ---
Test Reason : Blood Pressure : / mmHG Vent. Rate : 122 BPM Atrial Rate : 122 BPM P-R Int : 126 ms QRS Dur : 086 ms QT Int : 338 ms P-R-T Axes : 070 089 034 degrees QTc Int : 481 ms SINUS TACHYCARDIA NONSPECIFIC T WAVE ABNORMALITY ABNORMAL ECG WHEN COMPARED WITH ECG OF 03-NOV-2017 21:17, VENT. RATE HAS INCREASED BY 58 BPM NONSPECIFIC T WAVE ABNORMALITY NOW EVIDENT IN INFERIOR LEADS NONSPECIFIC T WAVE ABNORMALITY NOW EVIDENT IN LATERAL LEADS Confirmed by Brandt Zavala ([id number]) on 02/28/2018 4:32:50 PM Referred By: Confirmed By:Brandt Zavala
[2018-02-28] MEDS ORDERED: chlordiazePOXIDE HCL 25 MG CAPSULE PO SCH (17:00)
[2018-03-01] MEDS ORDERED: chlordiazePOXIDE 5 MG CAPSULE PO SCH (17:00)
[2018-03-02] MEDS ORDERED: chlordiazePOXIDE HCL 10 MG CAPSULE PO SCH (17:00)
== END 2018-02-28 10:34 | disposition left against medical advice (07) | DRG 770 ==
LOC: YASAS 09:20 → Y6N 12:50
PROC: HZ2ZZZZ Detoxification Services for Substance Abuse Treatment (ICD-10-PCS; principal; 2018-02-27)
DX: F10.230 Alcohol dependence with withdrawal, uncomplicated (principal); F19.24 Other psychoactive substance dependence with psychoactive substance-induced mood disorder; F34.1 Dysthymic disorder; F31.9 Bipolar disorder, unspecified; F32.9 Major depressive disorder, single episode, unspecified; F41.9 Anxiety disorder, unspecified; J45.21 Mild intermittent asthma with (acute) exacerbation; D64.9 Anemia, unspecified; Z91.14 Patient's other noncompliance with medication regimen; K51.90 Ulcerative colitis, unspecified, without complications; R63.4 Abnormal weight loss; Z68.21 Body mass index [BMI] 21.0-21.9, adult; Z86.19 Personal history of other infectious and parasitic diseases
CPT/HCPCS: 36415; 80053; 81003; 85027; 86593; 87389; 93005; 93010

== ENCOUNTER 2018-07-09 10:48 | Inpatient (IN) | payer OTHER ==
[2018-07-09 11:26] VITALS: BMI 22.3
--- NOTE | 2018-07-09 13:13 | HP ---
CIWA Score Nausea/Vomitin Muscle Tremors: 3 Anxiety: 3 Agitation: 3 Paroxysmal Sweats: 3 Orientation: 0-Oriented Tacttile Disturbances: 0-None Auditory Disturbances: 0-None Visual Disturbances: 0-None Headache: 0-None Present CIWA-Ar Total Score: 15 - Admission Criteria OASAS Guidelines: Admission for Medically Managed Detox: Requires at least one of the followin. CIWA greater than 12 2. Seizures within the past 24 hours 3. Delirium tremens within the past 24 hours 4. Hallucinations within the past 24 hours 5. Acute intervention needed for co occurring medical disorder 6. Acute intervention needed for co occurring psychiatric disorder 7. Severe withdrawal that cannot be handled at a lower level of care (continued vomiting, continued diarrhea, abnormal vital signs) requiring intravenous medication and/or fluids 8. Patient presents the following: CIWA greater than 12 Admission Criteria Met: Admission criteria met Admission ROS [facility] - [facility] Chief Complaint: "I am 38 y/o, I need to stop" Allergies/Adverse Reactions: Allergies Allergy/AdvReac Type Severity Reaction Status Date / Time ciprofloxacin [From Cipro] Allergy Verified 07/09/18 11:33 turkey Allergy Verified 07/09/18 11:33 haloperidol [From Haldol] AdvReac Verified 07/09/18 11:33 History of Present Illness: 37 y/o female with a long hx of alcohol addiction here today for detox. States she used cocaine for the first time today. Has been in previous detox programs. Admits to suicidal attempt about 4 yrs ago [place]. Hx of Seizures, Asthma, Ulcerative Colitis, PTSD Exam Limitations: No Limitations - Ebola screening Have you traveled outside of the country in the last 21 days: No (N) Have you had contact with anyone from an Ebola affected area: No Have you been sick,other than usual withdrawal symptoms: No Do you have a fever: No - Review of Systems Constitutional: Night Sweats, Changes in sleep EENT: reports: No Symptoms Reported Respiratory: reports: No Symptoms reported Cardiac: reports: No Symptoms Reported GI: reports: No Symptoms Reported : reports: No Symptoms Reported ("Foul smelling white discharge"), Burning, Dysuria, Discharge Musculoskeletal: reports: No Symptoms Reported Integumentary: reports: No Symptoms Reported Neuro: reports: Seizure Endocrine: reports: No Symptoms Reported Hematology: reports: Anemia Psychiatric: reports: Mood/Affect Appropiate, Orientated x3, Anxious Patient History - Patient Medical History Hx Anemia: Yes (not complaint with meds) Hx Asthma: Yes (uses albuterol, advair) Hx Chronic Obstructive Pulmonary Disease (COPD): No Hx Cancer: No Hx Cardiac Disorders: No Hx Congestive Heart Failure: No Hx Hypertension: No Hx Hypercholesterolemia: No Hx Pacemaker: No HX Cerebrovascular Accident: No Hx Seizures: Yes (seizure 3 years ago 2014) Hx Dementia: No Hx Diabetes: No Hx Gastrointestinal Disorders: Yes (uLCERATIVE COLITIS - on Apriso) Hx Liver Disease: No Hx Genitourinary Disorders: No Hx Sexually Transmitted Disorders: Yes (GONORRHEA TREATED DECEMBER 2017) Hx Renal Disease (ESRD): No Hx Thyroid Disease: No Hx Human Immunodeficiency Virus (HIV): No (last tested 2 years ago ) Hx Hepatitis C: No Hx Depression: Yes (On zoloft - non compliant) Hx Suicide Attempt: No Hx Bipolar Disorder: Yes Hx Schizophrenia: No - Patient Surgical History Past Surgical History: No Hx Neurologic Surgery: No Hx Cataract Extraction: No Hx Cardiac Surgery: No Hx Lung Surgery: No Hx Breast Surgery: No Hx Breast Biopsy: No Hx Abdominal Surgery: No Hx Appendectomy: No Hx Cholecystectomy: No Hx Genitourinary Surgery: No Hx Section: No Hx Orthopedic Surgery: No Hx Hysterectomy: No Anesthesia Reaction: No - PPD History Previous Implant?: Yes Documented Results: Negative w/proof Implanted On Prior [facility] Admission?: Yes Date: 11/05/17 - Reproductive History Patient is a Female of Child Bearing Age (11 -55 yrs old): Yes Last Menstrual Period: 02/20/18 Patient : No - Smoking Cessation Smoking history: Current some day smoker Aproximately how many cigarettes per day: 13 Hx Chewing Tobacco Use: No Initiated information on smoking cessation: Yes 'Breaking Loose' booklet given: 07/09/18 - Substance & Tx. History Hx Alcohol Use: Yes Hx Substance Use: Yes Substance Use Type: Alcohol, Cocaine Hx Substance Use Treatment: No - Substances Abused Alcohol Route: Oral Frequency: Daily Amount used: 1 (6 PACK) BEER, 1/2 pint Age of first use: 15 Date of Last Use: 07/09/18 Cocaine Route: Smoking Frequency: 1-3 times last 30 days Amount used: 3 BAGS Age of first use: 37 Date of Last Use: 07/09/18 Family Disease History - Family Disease History Family History: Unremarkable Admission Physical Exam [facility] - Vital Signs Vital Signs: Vital Signs - 24 hr 07/09/18 11:17 Temperature 96.9 F L Pulse Rate 82 Respiratory 18 Rate Blood Pressure 104/72 - Physical General Appearance: Yes: Mild Distress, Anxious HEENTM: Yes: Nasal Congestion Respiratory: Yes: Lungs Clear, No Respiratory Distress, No Accessory Muscle Use Neck: Yes: No masses,lesions,Nodules, Trachea in good position Breast: Yes: Breast Exam Deferred Cardiology: Yes: Regular Rate Abdominal: Yes: Normal Bowel Sounds, Non Tender Genitourinary: Yes: Burning, [place], Dysuria, Vaginal Discharge Back: Yes: Normal Inspection Musculoskeletal: Yes: full range of Motion, Gait Steady Extremities: Yes: Normal Capillary Refill, Normal Inspection 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: Yes: Within Normal Limits, Fully Oriented, Alert Integumentary: Yes: Dry, Warm Lymphatic: Yes: Within Normal Limits - Diagnostic (1) Alcohol dependence with uncomplicated withdrawal Current Visit: Yes Status: Acute (2) Nicotine dependence Current Visit: Yes Status: Acute (3) Ulcerative colitis Current Visit: No Status: Acute Qualifiers: Ulcerative colitis location: unspecified ulcerative colitis location Digestive disease complication type: unspecified complication Qualified Code(s ): K51.919 - Ulcerative colitis, unspecified with unspecified complications (4) Alcohol related seizure Current Visit: No Status: Chronic (5) Asthma Current Visit: No Status: Chronic Qualifiers: Asthma severity: mild Asthma persistence: intermittent Asthma complication type: with acute exacerbation Qualified Code(s): J45.21 - Mild intermittent asthma with (acute) exacerbation (6) Depression (emotion) Current Visit: No Status: Suspected Qualifiers: Depression Type: dysthymia Qualified Code(s): F34.1 - Dysthymic disorder Cleared for Admission [facility] - Detox or Rehab [facility] Level of Care: Medically Managed Detox Regimen/Protocol: Librium [facility] Breath Alcohol Content Breath Alcohol Content: 0.079 Urine Pregancy Test - Result Urine Test Results: Negative- NO Line Present Urine Drug Screen - Results Drug Screen Negative: No Urine Drug Screen Results: MATEO-Cocaine
[2018-07-09] MEDS ORDERED: ALBUTEROL SO4 8 GM HFA INHALER IH PRN (13:26)
[2018-07-09] MEDS ORDERED: LOPERAMIDE HCL 2 MG CAPSULE PO PRN (13:55)
[2018-07-09] MEDS ORDERED: MAG HYDROX/AL HYDROX/SIMETH 30 ML UNIT-DOSE CUP PO PRN (13:55)
[2018-07-09] MEDS ORDERED: chlordiazePOXIDE HCL 25 MG CAPSULE PO PRN (13:55)
[2018-07-09] MEDS ORDERED: guaiFENesin/D-METHORPHAN HB 10 ML UNIT-DOSE CUPS PO PRN (13:55)
[2018-07-09] MEDS ORDERED: chlordiazePOXIDE HCL 25 MG CAPSULE PO ONE (13:55)
[2018-07-09] MEDS ORDERED: P-EPHED 60MG/TRIPROLIDI 2.5MG TABLET PO PRN (13:55)
[2018-07-09] MEDS ORDERED: MAGNESIUM HYDROX 2400MG/30ML ORAL SUSPENSION 30 ML CUP PO PRN (13:55)
[2018-07-09] MEDS ORDERED: MENTHOL/PHENOL 1 EACH UD MM PRN (13:55)
[2018-07-09] MEDS ORDERED: MAGNESIUM CITRATE 300 ML BOTTLE PO PRN (13:55)
[2018-07-09] MEDS ORDERED: IBUPROFEN 400 MG TABLET (FP) PO PRN (13:55)
[2018-07-09] MEDS ORDERED: ACETAMINOPHEN 325 MG TABLET (FP) PO PRN (13:55)
[2018-07-09] MEDS: RANITIDINE HCL 150 MG TABLET (FP) PO SCH (14:04)
[2018-07-09] MEDS: levETIRAcetam 500 MG TABLET (FP) PO SCH ×2 (14:04→22:24)
[2018-07-09] MEDS: chlordiazePOXIDE HCL 25 MG CAPSULE PO SCH ×2 (17:15→22:24)
[2018-07-09] MEDS ORDERED: MELATONIN 5 MG TABLETS PO PRN (22:00)
[2018-07-09] MEDS: THIAMINE HCL 100 MG TABLET (FP) PO SCH (22:24)
[2018-07-10 01:43] LABS: URINE APPEARANCE CLEAR; URINE BILIRUBIN NEGATIVE (<2.0 mg/dL); URINE COLOR STRAW; URINE GLUCOSE (UA) NEGATIVE (NEGATIVE); URINE KETONE NEGATIVE (NEGATIVE); URINE LEUK ESTERASE TRACE (NEGATIVE); URINE NITRITE NEGATIVE (NEGATIVE); URINE PROTEIN NEGATIVE (NEGATIVE); URINE UROBILINOGEN NEGATIVE mg/dL (0.2-1.0)
[2018-07-10 01:49] LABS: EPI CELLS FEW /HPF (FEW); URINE BACTERIA RARE /hpf (NONE SEEN)
[2018-07-10] MEDS: chlordiazePOXIDE HCL 25 MG CAPSULE PO SCH ×4 (06:09→22:21)
[2018-07-10] MEDS ORDERED: ERGOCALCIFEROL (VITAMIN D2) 50,000 UNIT CAPSULE (FP) PO SCH (10:00)
--- NOTE | 2018-07-10 10:04 | PN ---
[facility] CIWA - CIWA Score Nausea/Vomitin-Mild Nausea/No Vomiting Muscle Tremors: 3 Anxiety: 3 Agitation: 3 Paroxysmal Sweats: 1-Minimal Palms Moist Orientation: 1-Uncertain about Date Tacttile Disturbances: 0-None Auditory Disturbances: 1-Very Mild Visual Disturbances: 0-None Headache: 1-Very Mild CIWA-Ar Total Score: 14 S Progress Note (SOAP) Subjective: long history of bipolar disorder hospitalized two months ago for rapid mood swing treated with zoloft seroquel and respiradal patient met psychiatric consultation criteria - psych referral tremor sweating indigestion history of colitis treated with mesalamine 800 mg tid Objective: 07/10/18 10:50 Vital Signs Temperature 97.1 F L 07/10/18 09:32 Pulse Rate 85 07/10/18 09:32 Respiratory Rate 18 07/10/18 09:32 Blood Pressure 90/60 07/10/18 09:32 O2 Sat by Pulse Oximetry (%) Laboratory Last Values WBC 5.8 K/mm3 (4.0-10.0) 07/10/18 08:15 RBC 4.03 M/mm3 (3.60-5.2) 07/10/18 08:15 Hgb 8.9 GM/dL (10.7-15.3) L 07/10/18 08:15 Hct 28.1 % (32.4-45.2) L 07/10/18 08:15 MCV 69.7 fl (80-96) L 07/10/18 08:15 MCH 22.1 pg (25.7-33.7) L 07/10/18 08:15 MCHC 31.7 g/dl (32.0-36.0) L 07/10/18 08:15 RDW 17.6 % (11.6-15.6) H 07/10/18 08:15 Plt Count 312 K/MM3 (134-434) 07/10/18 08:15 MPV 9.7 fl (7.5-11.1) 07/10/18 08:15 Sodium 139 mmol/L (136-145) 07/10/18 08:15 Potassium 4.0 mmol/L (3.5-5.1) 07/10/18 08:15 Chloride 105 mmol/L (98-107) 07/10/18 08:15 Carbon Dioxide 26 mmol/L (21-32) 07/10/18 08:15 Anion Gap 8 MMOL/L (8-16) 07/10/18 08:15 BUN 15 mg/dL (7-18) 07/10/18 08:15 Creatinine 0.7 mg/dL (0.55-1.3) 07/10/18 08:15 Creat Clearance w eGFR > 60 (>60) 07/10/18 08:15 Random Glucose 87 mg/dL (74-106) 07/10/18 08:15 Calcium 8.8 mg/dL (8.5-10.1) 07/10/18 08:15 Total Bilirubin 0.2 mg/dL (0.2-1) 07/10/18 08:15 AST 10 U/L (15-37) L 07/10/18 08:15 ALT 12 U/L (13-61) L 07/10/18 08:15 Alkaline Phosphatase 115 U/L (45-117) 07/10/18 08:15 Total Protein 7.3 g/dl (6.4-8.2) 07/10/18 08:15 Albumin 3.5 g/dl (3.4-5.0) 07/10/18 08:15 Urine Color Straw 07/09/18 23:30 Urine Appearance Clear 07/09/18 23:30 Urine pH 6.0 (5.0-8.0) 07/09/18 23:30 Ur Specific [place] 1.005 (1.010-1.035) L 07/09/18 23:30 Urine Protein Negative (NEGATIVE) 07/09/18 23:30 Urine Glucose (UA) Negative (NEGATIVE) 07/09/18 23:30 Urine Ketones Negative (NEGATIVE) 07/09/18 23:30 Urine Blood Negative (NEGATIVE) 07/09/18 23:30 Urine Nitrite Negative (NEGATIVE) 07/09/18 23:30 Urine Bilirubin Negative (<2.0 mg/dL) 07/09/18 23:30 Urine Urobilinogen Negative mg/dL (0.2-1.0) 07/09/18 23:30 Ur Leukocyte Esterase Trace (NEGATIVE) 07/09/18 23:30 Urine WBC (Auto) 3 /hpf (3-5) 07/09/18 23:30 Urine RBC (Auto) 1 /hpf (0-3) 07/09/18 23:30 Ur Epithelial Cells Few /HPF (FEW) 07/09/18 23:30 Urine Bacteria Rare /hpf (NONE SEEN) 07/09/18 23:30 lab noted low iron Assessment: 07/10/18 10:51 withdrawal sx anemia Plan: continue detox ferrous sulfate
[2018-07-10] MEDS: RANITIDINE HCL 150 MG TABLET (FP) PO SCH ×3 (10:13→21:18)
[2018-07-10] MEDS: levETIRAcetam 500 MG TABLET (FP) PO SCH ×2 (10:13→21:18)
[2018-07-10] MEDS: PRENATAL VITAMINS W/ FOLIC ACID TABLET (FP) PO SCH (10:13)
[2018-07-10 10:22] LABS: ALBUMIN 3.5 g/dl (3.4-5.0); ALK PHOS 115 U/L (45-117); ANION GAP 8 MMOL/L (8-16); BILIRUBIN,TOTAL 0.2 mg/dL (0.2-1); BLOOD UREA NITROGEN 15 mg/dL (7-18); CALCIUM 8.8 mg/dL (8.5-10.1); CHLORIDE 105 mmol/L (98-107); CO2 26 mmol/L (21-32); CREATININE 0.7 mg/dL (0.55-1.3); GLUCOSE,RANDOM 87 mg/dL (74-106); SGOT/AST 10 U/L (15-37); SGPT/ALT 12 U/L (13-61); SODIUM 139 mmol/L (136-145); TOT PROT 7.3 g/dl (6.4-8.2)
[2018-07-10 10:34] LABS: HEMATOCRIT 28.1 % (32.4-45.2); HEMOGLOBIN 8.9 GM/dL (10.7-15.3); MCH 22.1 pg (25.7-33.7); MCHC 31.7 g/dl (32.0-36.0); MEAN CELL VOLUME 69.7 fl (80-96); MEAN PLT VOLUME 9.7 fl (7.5-11.1); PLATELET COUNT 312 K/MM3 (134-434); RBC 4.03 M/mm3 (3.60-5.2); RDW 17.6 % (11.6-15.6); WHITE BLOOD COUNT 5.8 K/mm3 (4.0-10.0)
--- NOTE | 2018-07-10 13:26 | CONSULT ---
[facility] Psychiatric Consult - Data Date of interview: 07/10/18 Admission source: [facility] Identifying data: This is a 37 years old female, single mother of three, homeless, with no financial support with a long history of Alcohol, Cocaine, Nicotine addiction/dependence here reporting withdrawal symptoms and seeking for detox. States she used cocaine for the first time today. Has been in previous detox programs. Substance Abuse History: Smoking history: Current some day smoker. Aproximately how many cigarettes per day: 13. Hx Chewing Tobacco Use: No. Initiated information on smoking cessation: Yes. 'Breaking Loose' booklet given : 07/09/18. - Substance & Tx. History. Hx Alcohol Use: Yes. Hx Substance Use : Yes. Substance Use Type: Alcohol, Cocaine. Hx Substance Use Treatment: No. - Substances Abused. Alcohol. Route: Oral. Frequency: Daily. Amount used : 1 (6 PACK) BEER, 1/2 pint. Age of first use: 15. Date of Last Use: . Cocaine. Route: Smoking. Frequency: 1-3 times last 30 days. Amount used: 3 BAGS. Age of first use: 37. Date of Last Use: 07/09/18 Medical History: Weight loss history, Asthma, Seizure history, Ulcerrative Collitis Psychiatric History: Patient reports history of SAchizophrenia, PTSD, with most recent psychiatric admission on 3 years ago at [facility] for [facility], currently stable on : Risperdal 1mg po bid. Zoloft 50mg poqd. Seroquel 100mg po qhs. Benadryl 50mg po qhs. Patient reports suyicidal attempt 3 years ago - walking against trffic, reports no suicidal history since then Physical/Sexual Abuse/Trauma History: Denies Additional Comment: Risperdal 1mg po bid. Zoloft 50mg poqd. Seroquel 100mg po qhs. Benadryl 50mg po qhs Mental Status Exam - Mental Status Exam Alert and Oriented to: Person Cognitive Function: Fair Patient Appearance: Unkempt Mood: Apprehensive Affect: Mood Congruent Patient Behavior: Cooperative Speech Pattern: Appropriate Voice Loudness: Mildly Soft/Quiet Thought Process: Circumstantial, Goal Oriented Thought Disorder: Being Controlled Hallucinations: Denies Suicidal Ideation: Denies Homicidal Ideation: Denies Insight/Judgement: Fair Sleep: Difficulty falling asleep Appetite: Weight gain Muscle strength/Tone: Mild Hypotonicity Gait/Station: Normal Additional Comments: Risperdal 1mg po bid. Zoloft 50mg poqd. Seroquel 100mg po qhs. Benadryl 50mg po qhs Psychiatric Findings - Problem List ([place] 1, 2,3) (1) Alcohol dependence with uncomplicated withdrawal Current Visit: Yes Status: Acute (2) Nicotine dependence Current Visit: Yes Status: Acute (3) Alcohol dependence with withdrawal Current Visit: No Status: Acute Qualifiers: Complication of substance-induced condition: uncomplicated Qualified Code(s ): F10.230 - Alcohol dependence with withdrawal, uncomplicated (4) Substance induced mood disorder Current Visit: No Status: Acute (5) Schizophrenia Current Visit: Yes Status: Acute Qualifiers: Schizophrenia type: paranoid schizophrenia Qualified Code(s): F20.0 - Paranoid schizophrenia - Initial Treatment Plan Initial Treatment Plan: Risperdal 1mg po bid. Zoloft 50mg poqd. Seroquel 100mg po qhs. Benadryl 50mg po qhs
[2018-07-10] MEDS ORDERED: diphenhydrAMINE HCL 50 MG CAPSULE PO PRN (13:50)
[2018-07-10] MEDS: FERROUS SO4 325 MG TABLET (FP) PO SCH (15:01)
[2018-07-10] MEDS: MESALAMINE 800 MG TABLET.DR PO SCH ×2 (15:02→21:25)
[2018-07-10] MEDS: risperiDONE 1 MG TABLET (FP) PO SCH ×2 (15:18→21:19)
[2018-07-10] MEDS: SERTRALINE HCL 50 MG TABLET (FP) PO SCH (15:19)
[2018-07-10] MEDS ORDERED: diphenhydrAMINE HCL 25 MG CAPSULE (FP) PO ONE (20:25)
[2018-07-10] MEDS: THIAMINE HCL 100 MG TABLET (FP) PO SCH (21:18)
[2018-07-10] MEDS: QUEtiapine FUMARATE 100 MG TABLET (FP) PO SCH (21:18)
[2018-07-11] MEDS: chlordiazePOXIDE HCL 25 MG CAPSULE PO SCH ×2 (06:50→13:28)
[2018-07-11] MEDS: MESALAMINE 800 MG TABLET.DR PO SCH ×3 (06:54→22:36)
[2018-07-11] MEDS: FERROUS SO4 325 MG TABLET (FP) PO SCH (13:05)
[2018-07-11] MEDS: levETIRAcetam 500 MG TABLET (FP) PO SCH ×2 (13:06→22:36)
[2018-07-11] MEDS: PRENATAL VITAMINS W/ FOLIC ACID TABLET (FP) PO SCH (13:06)
[2018-07-11] MEDS: risperiDONE 1 MG TABLET (FP) PO SCH ×2 (13:06→22:36)
[2018-07-11] MEDS: RANITIDINE HCL 150 MG TABLET (FP) PO SCH ×3 (13:06→22:36)
[2018-07-11] MEDS: SERTRALINE HCL 50 MG TABLET (FP) PO SCH (13:07)
--- NOTE | 2018-07-11 16:24 | PN ---
[facility] CIWA - CIWA Score Nausea/Vomitin-No Nausea/No Vomiting Muscle Tremors: None Anxiety: 4-Mod. Anxious/Guarded Agitation: 2 Paroxysmal Sweats: No Perspiration Orientation: 0-Oriented Tacttile Disturbances: 0-None Auditory Disturbances: 0-None Visual Disturbances: 3-Moderate Sensitivity Headache: 0-None Present CIWA-Ar Total Score: 9 BHS Progress Note (SOAP) Subjective: Constipation, Stomach Cramping, Fatigue. Objective: PATIENT A & O X 3, OBSERVED AMBULATING ON UNIT. IN NO ACUTE DISTRESS. 07/11/18 16:21 Vital Signs Temperature 97.5 F L 07/11/18 13:19 Pulse Rate 83 07/11/18 14:09 Respiratory Rate 18 07/11/18 14:09 Blood Pressure 99/69 07/11/18 14:09 O2 Sat by Pulse Oximetry (%) Laboratory Tests 07/09/18 07/10/18 07/10/18 23:30 08:15 08:15 WBC 5.8 RBC 4.03 Hgb 8.9 L Hct 28.1 L MCV 69.7 L MCH 22.1 L MCHC 31.7 L RDW 17.6 H Plt Count 312 MPV 9.7 Sodium 139 Potassium 4.0 Chloride 105 Carbon Dioxide 26 Anion Gap 8 BUN 15 Creatinine 0.7 Creat Clearance w eGFR > 60 Random Glucose 87 Calcium 8.8 Total Bilirubin 0.2 AST 10 L ALT 12 L Alkaline Phosphatase 115 Total Protein 7.3 Albumin 3.5 Urine Color Straw Urine Appearance Clear Urine pH 6.0 Ur Specific [place] 1.005 L Urine Protein Negative Urine Glucose (UA) Negative Urine Ketones Negative Urine Blood Negative Urine Nitrite Negative Urine Bilirubin Negative Urine Urobilinogen Negative Ur Leukocyte Esterase Trace Urine WBC (Auto) 3 Urine RBC (Auto) 1 Ur Epithelial Cells Few Urine Bacteria Rare RPR Titer Hep C Ab Diagnostic HIV 1&2 Antibody Screen HIV P24 Antigen 07/10/18 07/10/18 07/10/18 08:15 08:15 08:15 WBC RBC Hgb Hct MCV MCH MCHC RDW Plt Count MPV Sodium Potassium Chloride Carbon Dioxide Anion Gap BUN Creatinine Creat Clearance w eGFR Random Glucose Calcium Total Bilirubin AST ALT Alkaline Phosphatase Total Protein Albumin Urine Color Urine Appearance Urine pH Ur Specific [place] Urine Protein Urine Glucose (UA) Urine Ketones Urine Blood Urine Nitrite Urine Bilirubin Urine Urobilinogen Ur Leukocyte Esterase Urine WBC (Auto) Urine RBC (Auto) Ur Epithelial Cells Urine Bacteria RPR Titer Nonreactive Hep C Ab Diagnostic <0.1 HIV 1&2 Antibody Screen Negative HIV P24 Antigen Negative LABS NOTED. Assessment: 07/11/18 16:21 WITHDRAWAL SYMPTOMS. MICROCYTIC ANEMIA. 07/11/18 16:22 Plan: CONTINUE DETOX. INCREASE DAILY PO FLUID INTAKE. CONTINUE FEOSOL FOR MICROCYTIC ANEMIA. PRN MOM FOR CONSTIPATION.
[2018-07-11] MEDS: chlordiazePOXIDE 5 MG CAPSULE PO SCH ×2 (18:20→22:37)
[2018-07-11] MEDS: THIAMINE HCL 100 MG TABLET (FP) PO SCH (22:36)
[2018-07-11] MEDS: QUEtiapine FUMARATE 100 MG TABLET (FP) PO SCH (22:36)
[2018-07-12] MEDS: chlordiazePOXIDE 5 MG CAPSULE PO SCH (06:01)
[2018-07-12] MEDS: MESALAMINE 800 MG TABLET.DR PO SCH (06:01)
--- NOTE | 2018-07-12 08:53 | DS ---
[facility] Detox Discharge Summary Admission Date: 07/09/18 Discharge Date: 07/12/18 - History Present History: Alcohol Dependence Additional Comments: 37 years old female admitted on 07/09/18 for alcohol withdrawal stabilization denies alcohol withdrawal sx that she refused all medication on 07/11/18 patient preferred begin chemical rehab today aftercare [facility] or [facility] - Physical Exam Results Vital Signs: Vital Signs Temperature 97.6 F 07/11/18 21:52 Pulse Rate 89 07/11/18 21:52 Respiratory Rate 18 07/12/18 06:30 Blood Pressure 91/65 07/11/18 21:52 O2 Sat by Pulse Oximetry (%) Pertinent Admission Physical Exam Findings: alcohol withdrawal sx Laboratory Last Values WBC 5.8 K/mm3 (4.0-10.0) 07/10/18 08:15 RBC 4.03 M/mm3 (3.60-5.2) 07/10/18 08:15 Hgb 8.9 GM/dL (10.7-15.3) L 07/10/18 08:15 Hct 28.1 % (32.4-45.2) L 07/10/18 08:15 MCV 69.7 fl (80-96) L 07/10/18 08:15 MCH 22.1 pg (25.7-33.7) L 07/10/18 08:15 MCHC 31.7 g/dl (32.0-36.0) L 07/10/18 08:15 RDW 17.6 % (11.6-15.6) H 07/10/18 08:15 Plt Count 312 K/MM3 (134-434) 07/10/18 08:15 MPV 9.7 fl (7.5-11.1) 07/10/18 08:15 Sodium 139 mmol/L (136-145) 07/10/18 08:15 Potassium 4.0 mmol/L (3.5-5.1) 07/10/18 08:15 Chloride 105 mmol/L (98-107) 07/10/18 08:15 Carbon Dioxide 26 mmol/L (21-32) 07/10/18 08:15 Anion Gap 8 MMOL/L (8-16) 07/10/18 08:15 BUN 15 mg/dL (7-18) 07/10/18 08:15 Creatinine 0.7 mg/dL (0.55-1.3) 07/10/18 08:15 Creat Clearance w eGFR > 60 (>60) 07/10/18 08:15 Random Glucose 87 mg/dL (74-106) 07/10/18 08:15 Calcium 8.8 mg/dL (8.5-10.1) 07/10/18 08:15 Total Bilirubin 0.2 mg/dL (0.2-1) 07/10/18 08:15 AST 10 U/L (15-37) L 07/10/18 08:15 ALT 12 U/L (13-61) L 07/10/18 08:15 Alkaline Phosphatase 115 U/L (45-117) 07/10/18 08:15 Total Protein 7.3 g/dl (6.4-8.2) 07/10/18 08:15 Albumin 3.5 g/dl (3.4-5.0) 07/10/18 08:15 Urine Color Straw 07/09/18 23:30 Urine Appearance Clear 07/09/18 23:30 Urine pH 6.0 (5.0-8.0) 07/09/18 23:30 Ur Specific [place] 1.005 (1.010-1.035) L 07/09/18 23:30 Urine Protein Negative (NEGATIVE) 07/09/18 23:30 Urine Glucose (UA) Negative (NEGATIVE) 07/09/18 23:30 Urine Ketones Negative (NEGATIVE) 07/09/18 23:30 Urine Blood Negative (NEGATIVE) 07/09/18 23:30 Urine Nitrite Negative (NEGATIVE) 07/09/18 23:30 Urine Bilirubin Negative (<2.0 mg/dL) 07/09/18 23:30 Urine Urobilinogen Negative mg/dL (0.2-1.0) 07/09/18 23:30 Ur Leukocyte Esterase Trace (NEGATIVE) 07/09/18 23:30 Urine WBC (Auto) 3 /hpf (3-5) 07/09/18 23:30 Urine RBC (Auto) 1 /hpf (0-3) 07/09/18 23:30 Ur Epithelial Cells Few /HPF (FEW) 07/09/18 23:30 Urine Bacteria Rare /hpf (NONE SEEN) 01/13/19 23:30 RPR Titer Nonreactive (NONREACTIVE) 07/10/18 08:15 Hep C Ab Diagnostic <0.1 s/co ratio (0.0-0.9) 07/10/18 08:15 HIV 1&2 Antibody Screen Negative 07/10/18 08:15 HIV P24 Antigen Negative 07/10/18 08:15 lab noted - Treatment Hospital Course: Detox Protocol Followed, Detoxed Safely, Responded well, Discharged Condition Good, Rehab Referral Accepted Patient has Accepted a Rehab Referral to: [facility] - Medication Discharge Medications: Ambulatory Orders Quetiapine Fumarate [Seroquel -] 100 mg PO HS 11/03/17 Sertraline HCl [Zoloft -] 50 mg PO DAILY 11/03/17 Ergocalciferol [Vitamin D2] 50,000 unit PO WEEKLY 02/27/18 Mesalamine [Apriso] 0.375 gm PO DAILY 02/27/18 Prazosin HCl 1 mg PO HS 02/27/18 Ranitidine [Zantac -] 150 mg PO DAILY 07/09/18 Diphenhydramine [Benadryl Capsule -] 50 mg PO HS PRN #30 capsule 07/10/18 Quetiapine Fumarate [Seroquel -] 100 mg PO HS #30 tablet 07/10/18 Risperidone [Risperdal -] 1 mg PO BID #60 tablet 07/10/18 Sertraline HCl [Zoloft -] 50 mg PO DAILY #30 tablet 07/10/18 Albuterol Sulfate Inhaler - [Ventolin HFA Inhaler -] 1 - 2 inh PO Q4H PRN #1 inhaler 07/12/18 levETIRAcetam [Keppra -] 500 mg PO BID #60 tablet 07/12/18 - Diagnosis (1) Alcohol dependence with uncomplicated withdrawal Status: Acute (2) Nicotine dependence Status: Acute Qualifiers: Nicotine product type: cigarettes Substance use status: in withdrawal Qualified Code(s): F17.213 - Nicotine dependence, cigarettes, with withdrawal (3) Substance induced mood disorder Status: Suspected (4) Asthma Status: Chronic Qualifiers: Asthma severity: mild Asthma persistence: intermittent Asthma complication type: with status asthmaticus Qualified Code(s): J45.22 - Mild intermittent asthma with status asthmaticus (5) Seizure Status: Chronic (6) Weight loss Status: Acute - AMA Did Patient Leave Against Medical Advice: No
[2018-07-12 09:39] VITALS: BP 101/73; PULSE 101; TEMP 96.9
[2018-07-12] MEDS: levETIRAcetam 500 MG TABLET (FP) PO SCH (10:28)
[2018-07-12] MEDS ORDERED: chlordiazePOXIDE HCL 10 MG CAPSULE PO SCH (17:00)
== END 2018-07-12 10:29 | disposition home or self-care (01) | DRG 775 ==
LOC: YASAS 10:48 → Y3N 12:36
PROC: HZ2ZZZZ Detoxification Services for Substance Abuse Treatment (ICD-10-PCS; principal; 2018-07-09)
DX: F10.230 Alcohol dependence with withdrawal, uncomplicated (principal); F17.213 Nicotine dependence, cigarettes, with withdrawal; F19.24 Other psychoactive substance dependence with psychoactive substance-induced mood disorder; F31.9 Bipolar disorder, unspecified; F20.0 Paranoid schizophrenia; F43.10 Post-traumatic stress disorder, unspecified; F34.1 Dysthymic disorder; J45.22 Mild intermittent asthma with status asthmaticus; K51.919 Ulcerative colitis, unspecified with unspecified complications; D50.9 Iron deficiency anemia, unspecified; Z86.69 Personal history of other diseases of the nervous system and sense organs; Z86.19 Personal history of other infectious and parasitic diseases
CPT/HCPCS: 36415; 80053; 81003; 81015; 85027; 86593; 86803; 87389; J2794

== ENCOUNTER 2018-09-18 14:54 | Inpatient (IN) | payer OTHER ==
[2018-09-18 16:09] VITALS: BMI 22.4
[2018-09-18] MEDS ORDERED: BISMUTH SUBSALICYLATE 524 MG/30 ML UD PO PRN (17:06)
[2018-09-18] MEDS ORDERED: MENTHOL/PHENOL 1 EACH UD MM PRN (17:06)
[2018-09-18] MEDS ORDERED: METHOCARBAMOL 500 MG TABLET PO PRN (17:06)
[2018-09-18] MEDS ORDERED: ACETAMINOPHEN 325 MG TABLET (FP) PO PRN ×2 (17:06)
[2018-09-18] MEDS ORDERED: IBUPROFEN 400 MG TABLET (FP) PO PRN (17:06)
[2018-09-18] MEDS ORDERED: MAGNESIUM CITRATE 300 ML BOTTLE PO PRN (17:06)
[2018-09-18] MEDS ORDERED: chlordiazePOXIDE HCL 25 MG CAPSULE PO PRN (17:06)
[2018-09-18] MEDS ORDERED: MELATONIN 5 MG TABLETS PO PRN (17:06)
[2018-09-18] MEDS ORDERED: MAG HYDROX/AL HYDROX/SIMETH 30 ML UNIT-DOSE CUP PO PRN (17:06)
[2018-09-18] MEDS ORDERED: MAGNESIUM HYDROX 2400MG/30ML ORAL SUSPENSION 30 ML CUP PO PRN (17:06)
[2018-09-18] MEDS ORDERED: hydrOXYzine PAMOATE 25 MG CAPSULE (FP) PO PRN (17:06)
[2018-09-18] MEDS ORDERED: NICOTINE POLACRILEX 2 MG GUM BUC PRN (17:06)
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
[2018-09-18] MEDS ORDERED: ALBUTEROL SO4 8 GM HFA INHALER IH PRN (17:09)
[2018-09-18] MEDS ORDERED: ONDANSETRON *ODT* 4 MG TABLET SL PRN (17:48)
[2018-09-18] MEDS ORDERED: TRIMETHOBENZAMIDE HCL 200MG/2ML INJ IM PRN (17:58)
[2018-09-18] MEDS ORDERED: THIAMINE HCL 100 MG TABLET (FP) PO SCH (22:00)
[2018-09-18] MEDS: levETIRAcetam 500 MG TABLET (FP) PO SCH (22:27)
[2018-09-18] MEDS: chlordiazePOXIDE HCL 25 MG CAPSULE PO SCH (22:27)
[2018-09-19 05:17] LABS: URINE APPEARANCE CLEAR; URINE BACTERIA 555.984 /hpf (NEGATIVE); URINE BILIRUBIN NEGATIVE (NEGATIVE); URINE COLOR YELLOW; URINE GLUCOSE (UA) NEGATIVE (NEGATIVE); URINE KETONE NEGATIVE (NEGATIVE); URINE LEUK ESTERASE 2+ (NEGATIVE); URINE NITRITE NEGATIVE (NEGATIVE); URINE PROTEIN NEGATIVE (NEGATIVE); URINE RBC 0 /hpf (0-4); URINE UROBILINOGEN 0.2 mg/dL (0.2-1.0); URINE WBC 11 /hpf (0-5)
[2018-09-19] MEDS: chlordiazePOXIDE HCL 25 MG CAPSULE PO SCH ×2 (05:53→10:07)
--- NOTE | 2018-09-19 09:29 | EKG ---
Test Reason : Blood Pressure : / mmHG Vent. Rate : 081 BPM Atrial Rate : 081 BPM P-R Int : 138 ms QRS Dur : 090 ms QT Int : 388 ms P-R-T Axes : 067 088 052 degrees QTc Int : 450 ms NORMAL SINUS RHYTHM NORMAL ECG WHEN COMPARED WITH ECG OF 27-FEB-2018 13:27, VENT. RATE HAS DECREASED BY 41 BPM T WAVE VARIATION Confirmed by JUDI HALL MD ([id number]) on 09/19/2018 9:29:22 AM Referred By: Confirmed By:JUDI HALL MD
--- NOTE | 2018-09-19 09:33 | PN ---
[facility] CIWA - CIWA Score Nausea/Vomitin-No Nausea/No Vomiting Muscle Tremors: 2 Anxiety: 3 Agitation: 2 Paroxysmal Sweats: 1-Minimal Palms Moist Orientation: 2-Disoriented Date<2 days Tacttile Disturbances: 0-None Auditory Disturbances: 0-None Visual Disturbances: 0-None Headache: 1-Very Mild CIWA-Ar Total Score: 11 BHS Progress Note (SOAP) Subjective: doing well with librium sleep better at night still feeling tired resting periodically during the day Objective: 09/19/18 09:35 Vital Signs Temperature 97.9 F 09/19/18 06:15 Pulse Rate 96 H 09/19/18 08:30 Respiratory Rate 18 09/19/18 08:00 Blood Pressure 93/60 09/19/18 06:15 O2 Sat by Pulse Oximetry (%) Laboratory Last Values Urine Color Yellow 09/19/18 00:05 Urine Appearance Clear 09/19/18 00:05 Urine pH 7.0 (5.0-8.0) 09/19/18 00:05 Ur Specific [place] 1.009 (1.010-1.035) L 09/19/18 00:05 Urine Protein Negative (NEGATIVE) 09/19/18 00:05 Urine Glucose (UA) Negative (NEGATIVE) 09/19/18 00:05 Urine Ketones Negative (NEGATIVE) 09/19/18 00:05 Urine Blood Negative (NEGATIVE) 09/19/18 00:05 Urine Nitrite Negative (NEGATIVE) 09/19/18 00:05 Urine Bilirubin Negative (NEGATIVE) 09/19/18 00:05 Urine Urobilinogen 0.2 mg/dL (0.2-1.0) 09/19/18 00:05 Ur Leukocyte Esterase 2+ (NEGATIVE) H 09/19/18 00:05 Urine WBC (Auto) 11 /hpf (0-5) 09/19/18 00:05 Urine RBC (Auto) 0 /hpf (0-4) 09/19/18 00:05 U Epithel Cells (Auto) 12.0 /HPF (0-5) 09/19/18 00:05 Urine Bacteria (Auto) 555.984 /hpf (NEGATIVE) 09/19/18 00:05 Urine Yeast (Auto) Review (NEGATIVE) A* 09/19/18 00:05 lab pending uti 09/19/18 09:36 begin bactrium ds bid x 5 days Assessment: 09/19/18 09:36 alcohol withdrawal sx uti Plan: continue detox bactrium ds bid x 5 days oral fluid hygiene
[2018-09-19] MEDS ORDERED: NICOTINE 14 MG/24 HOURS TOPICAL PATCH TD SCH (10:00)
[2018-09-19] MEDS ORDERED: RANITIDINE HCL 150 MG TABLET (FP) PO SCH (10:00)
[2018-09-19] MEDS ORDERED: PRENATAL VITAMINS W/ FOLIC ACID TABLET (FP) PO SCH (10:00)
[2018-09-19] MEDS ORDERED: SULFAMETHOXAZOLE/TRIMETHOPRIM 800MG/160MG D.S. TABLET PO SCH (10:00)
[2018-09-19] MEDS: levETIRAcetam 500 MG TABLET (FP) PO SCH (10:07)
[2018-09-19 10:44] LABS: URINE CRYSTALS NONE SEEN /hpf
[2018-09-19 10:45] LABS: HYALINE CASTS 10.53 /hpf (0-8); YEAST PRESENT (NEGATIVE)
[2018-09-19 12:20] LABS: HEMATOCRIT 29.2 % (32.4-45.2); HEMOGLOBIN 9.4 GM/dL (10.7-15.3); MCH 23.6 pg (25.7-33.7); MCHC 32.2 g/dl (32.0-36.0); MEAN CELL VOLUME 73.2 fl (80-96); MEAN PLT VOLUME 9.5 fl (7.5-11.1); PLATELET COUNT 255 K/MM3 (134-434); RBC 3.99 M/mm3 (3.60-5.2); RDW 20.2 % (11.6-15.6)
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
[2018-09-19 12:45] LABS: ALBUMIN 3.6 g/dl (3.4-5.0); ALK PHOS 123 U/L (45-117); ANION GAP 8 MMOL/L (8-16); BILIRUBIN,TOTAL 0.2 mg/dL (0.2-1); BLOOD UREA NITROGEN 14 mg/dL (7-18); CALCIUM 8.2 mg/dL (8.5-10.1); CHLORIDE 107 mmol/L (98-107); CO2 23 mmol/L (21-32); CREATININE 0.7 mg/dL (0.55-1.3); GLUCOSE,RANDOM 73 mg/dL (74-106); POTASSIUM 4.1 mmol/L (3.5-5.1); SGOT/AST 18 U/L (15-37); SGPT/ALT 16 U/L (13-61); SODIUM 137 mmol/L (136-145); TOT PROT 7.2 g/dl (6.4-8.2)
[2018-09-19] MEDS ORDERED: SERTRALINE HCL 50 MG TABLET (FP) PO SCH (12:45)
[2018-09-19 13:32] VITALS: BP 102/77; TEMP 98.5
[2018-09-19 15:18] VITALS: PULSE 96
--- NOTE | 2018-09-19 15:20 | DS ---
[facility] Detox Discharge Summary Admission Date: 09/18/18 Discharge Date: 09/19/18 - History Present History: Alcohol Dependence Additional Comments: 38 years old female admitted on 09/18/18 for alcohol withdrawal stabilization patient insists to leave the detox that "I am going to my friend" patient is alert no acute distress denies suicidal ideation patient has history of seizure treated with kappra poor medication adherence strong recommend the patient follow up with community 12 step self help group - Physical Exam Results Vital Signs: Vital Signs Temperature 98.5 F 09/19/18 13:31 Pulse Rate 97 H 09/19/18 14:30 Respiratory Rate 18 09/19/18 14:00 Blood Pressure 102/77 09/19/18 13:31 O2 Sat by Pulse Oximetry (%) Pertinent Admission Physical Exam Findings: alcohol withdrawal sx Laboratory Last Values WBC 8.0 K/mm3 (4.0-10.0) 09/19/18 07:30 RBC 3.99 M/mm3 (3.60-5.2) 09/19/18 07:30 Hgb 9.4 GM/dL (10.7-15.3) L 09/19/18 07:30 Hct 29.2 % (32.4-45.2) L 09/19/18 07:30 MCV 73.2 fl (80-96) L 09/19/18 07:30 MCH 23.6 pg (25.7-33.7) L 09/19/18 07:30 MCHC 32.2 g/dl (32.0-36.0) 09/19/18 07:30 RDW 20.2 % (11.6-15.6) H 09/19/18 07:30 Plt Count 255 K/MM3 (134-434) 09/19/18 07:30 MPV 9.5 fl (7.5-11.1) 09/19/18 07:30 Sodium 137 mmol/L (136-145) 09/19/18 07:30 Potassium 4.1 mmol/L (3.5-5.1) 09/19/18 07:30 Chloride 107 mmol/L (98-107) 09/19/18 07:30 Carbon Dioxide 23 mmol/L (21-32) 09/19/18 07:30 Anion Gap 8 MMOL/L (8-16) 09/19/18 07:30 BUN 14 mg/dL (7-18) 09/19/18 07:30 Creatinine 0.7 mg/dL (0.55-1.3) 09/19/18 07:30 Creat Clearance w eGFR 94.68 (>60) 09/19/18 07:30 Random Glucose 73 mg/dL (74-106) L 09/19/18 07:30 Calcium 8.2 mg/dL (8.5-10.1) L 09/19/18 07:30 Total Bilirubin 0.2 mg/dL (0.2-1) 09/19/18 07:30 AST 18 U/L (15-37) 09/19/18 07:30 ALT 16 U/L (13-61) 09/19/18 07:30 Alkaline Phosphatase 123 U/L (45-117) H 09/19/18 07:30 Total Protein 7.2 g/dl (6.4-8.2) 09/19/18 07:30 Albumin 3.6 g/dl (3.4-5.0) 09/19/18 07:30 Urine Color Yellow 09/19/18 00:05 Urine Appearance Clear 09/19/18 00:05 Urine pH 7.0 (5.0-8.0) 09/19/18 00:05 Ur Specific [place] 1.009 (1.010-1.035) L 09/19/18 00:05 Urine Protein Negative (NEGATIVE) 09/19/18 00:05 Urine Glucose (UA) Negative (NEGATIVE) 09/19/18 00:05 Urine Ketones Negative (NEGATIVE) 09/19/18 00:05 Urine Blood Negative (NEGATIVE) 09/19/18 00:05 Urine Nitrite Negative (NEGATIVE) 09/19/18 00:05 Urine Bilirubin Negative (NEGATIVE) 09/19/18 00:05 Urine Urobilinogen 0.2 mg/dL (0.2-1.0) 09/19/18 00:05 Ur Leukocyte Esterase 2+ (NEGATIVE) H 09/19/18 00:05 Urine WBC (Auto) 11 /hpf (0-5) 09/19/18 00:05 Urine RBC (Auto) 0 /hpf (0-4) 09/19/18 00:05 Urine Casts (Auto) 10.53 /hpf (0-8) 09/19/18 00:05 U Epithel Cells (Auto) 12.0 /HPF (0-5) 09/19/18 00:05 Urine Crystals (Auto) None seen /hpf 09/19/18 00:05 Urine Bacteria (Auto) 555.984 /hpf (NEGATIVE) 09/19/18 00:05 Urine Yeast (Auto) Present (NEGATIVE) 09/19/18 00:05 RPR Titer Nonreactive (NONREACTIVE) 09/19/18 07:30 HIV 1&2 Antibody Screen Negative 09/19/18 07:30 HIV P24 Antigen Negative 09/19/18 07:30 lab noted continue bactrium ds encourage 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 from pharmacy - Treatment Hospital Course: Detox Protocol Followed, Responded well Patient has Accepted a Rehab Referral to: 12 step self help group - Medication Discharge Medications: Ambulatory Orders Mesalamine [Apriso] 0.375 gm PO DAILY 02/27/18 Prazosin HCl 1 mg PO HS 02/27/18 Ranitidine [Zantac -] 150 mg PO DAILY 07/09/18 Risperidone [Risperdal -] 1 mg PO BID #60 tablet 07/10/18 Sertraline HCl [Zoloft -] 150 mg PO DAILY 09/18/18 Albuterol Sulfate Inhaler - [Ventolin HFA Inhaler -] 1 - 2 inh PO Q4H PRN #1 inhaler 09/19/18 Quetiapine Fumarate [Seroquel] 50 mg PO HS 09/19/18 Sulfamethoxazole/Trimethoprim [Bactrim DS -] 1 each PO BID #10 tablet 09/19/18 levETIRAcetam [Keppra -] 500 mg PO BID #60 tablet 09/19/18 - Diagnosis (1) Alcohol dependence with uncomplicated withdrawal Current Visit: Yes Status: Acute (2) GERD (gastroesophageal reflux disease) Current Visit: Yes Status: Chronic Qualifiers: Esophagitis presence: without esophagitis Qualified Code(s): K21.9 - Gastro -esophageal reflux disease without esophagitis (3) Substance induced mood disorder Current Visit: Yes Status: Suspected (4) Weight loss Current Visit: Yes Status: Acute (5) Asthma Current Visit: Yes Status: Chronic Qualifiers: Asthma severity: mild Asthma persistence: intermittent Asthma complication type: with status asthmaticus Qualified Code(s): J45.22 - Mild intermittent asthma with status asthmaticus (6) Seizure Current Visit: Yes Status: Chronic - AMA Did Patient Leave Against Medical Advice: Yes
[2018-09-19] MEDS ORDERED: QUEtiapine FUMARATE 50 MG TABLET PO SCH (22:00)
[2018-09-19] MEDS ORDERED: chlordiazePOXIDE HCL 25 MG CAPSULE PO SCH (23:00)
[2018-09-20] MEDS ORDERED: chlordiazePOXIDE HCL 10 MG CAPSULE PO PRN (23:00)
[2018-09-20] MEDS ORDERED: chlordiazePOXIDE HCL 10 MG CAPSULE PO SCH (23:00)
[2018-09-21] MEDS ORDERED: chlordiazePOXIDE HCL 10 MG CAPSULE PO SCH (23:00)
== END 2018-09-19 15:49 | disposition left against medical advice (07) | DRG 770 ==
LOC: YASAS 14:54 → Y3N 17:07
PROVIDERS: ADMIT Surgery; ATTEND Surgery
PROC: HZ2ZZZZ Detoxification Services for Substance Abuse Treatment (ICD-10-PCS; principal; 2018-09-18)
DX: F10.230 Alcohol dependence with withdrawal, uncomplicated (principal); F14.20 Cocaine dependence, uncomplicated; F17.213 Nicotine dependence, cigarettes, with withdrawal; F19.24 Other psychoactive substance dependence with psychoactive substance-induced mood disorder; F19.282 Other psychoactive substance dependence with psychoactive substance-induced sleep disorder; F43.10 Post-traumatic stress disorder, unspecified; K21.9 Gastro-esophageal reflux disease without esophagitis; R63.4 Abnormal weight loss; J45.22 Mild intermittent asthma with status asthmaticus; G40.909 Epilepsy, unspecified, not intractable, without status epilepticus; N39.0 Urinary tract infection, site not specified; D64.9 Anemia, unspecified; Z91.14 Patient's other noncompliance with medication regimen; Z87.19 Personal history of other diseases of the digestive system; Z88.8 Allergy status to other drugs, medicaments and biological substances
CPT/HCPCS: 36415; 80053; 80177; 81003; 85027; 86593; 87389; 93005; 93010; Q0162

== ENCOUNTER 2018-10-08 11:44 | Inpatient (IN) | payer OTHER ==
[2018-10-08 12:44] VITALS: BMI 21.4
--- NOTE | 2018-10-08 12:54 | HP ---
CIWA Score Nausea/Vomitin Muscle Tremors: 2 Anxiety: 2 Agitation: 2 Paroxysmal Sweats: 2 Orientation: 0-Oriented Tacttile Disturbances: 1-Very Mild Itch/Numbness Auditory Disturbances: 1-Very Mild Visual Disturbances: 0-None Headache: 2-Mild CIWA-Ar Total Score: 14 - Admission Criteria OASAS Guidelines: Admission for Medically Managed Detox: Requires at least one of the followin. CIWA greater than 12 2. Seizures within the past 24 hours 3. Delirium tremens within the past 24 hours 4. Hallucinations within the past 24 hours 5. Acute intervention needed for co occurring medical disorder 6. Acute intervention needed for co occurring psychiatric disorder 7. Severe withdrawal that cannot be handled at a lower level of care (continued vomiting, continued diarrhea, abnormal vital signs) requiring intravenous medication and/or fluids 8. Admission ROS S - HPI Chief Complaint: i need help to stop drinking alcohol Allergies/Adverse Reactions: Allergies Allergy/AdvReac Type Severity Reaction Status Date / Time ciprofloxacin [From Cipro] Allergy Verified 10/08/18 13:05 turkey Allergy Verified 10/08/18 13:05 haloperidol [From Haldol] AdvReac Verified 10/08/18 13:05 History of Present Illness: this 38 years old female with alcohol dependence ,seeking detox,withdrawal symptom. multiple admissions in detox,last detox 09/18/18 to 09/19/18 not completed seizure last 05/14 ptsd on zoloft 100 mgs po daily longest sobriety 4 months plan to go to rehab Exam Limitations: No Limitations - Ebola screening Have you traveled outside of the country in the last 21 days: No (N) Have you had contact with anyone from an Ebola affected area: No Do you have a fever: No - Review of Systems Constitutional: Loss of Appetite, Malaise, Night Sweats, Changes in sleep, Weakness, Unintentional Wgt. Loss EENT: reports: Nose Congestion Respiratory: reports: No Symptoms reported Cardiac: reports: No Symptoms Reported GI: reports: Nausea, Poor Appetite : reports: No Symptoms Reported Musculoskeletal: reports: Back Pain, Muscle Pain Integumentary: reports: Dryness Neuro: reports: Headache, Tremors Endocrine: reports: No Symptoms Reported Hematology: reports: No Symptoms Reported Psychiatric: reports: No Sypmtoms Reported, Judgement Intact, Mood/Affect Appropiate, other (ptsd) Other Systems: Reviewed and Negative Patient History - Patient Medical History Hx Anemia: Yes (not complaint with meds) Hx Asthma: Yes Hx Chronic Obstructive Pulmonary Disease (COPD): No Hx Cancer: No Hx Cardiac Disorders: No Hx Congestive Heart Failure: No Hx Hypertension: No Hx Hypercholesterolemia: No Hx Pacemaker: No HX Cerebrovascular Accident: No Hx Seizures: Yes (etoh related last 05/14) Hx Dementia: No Hx Diabetes: No Hx Gastrointestinal Disorders: Yes (gastritis) Hx Liver Disease: No Hx Genitourinary Disorders: No Hx Sexually Transmitted Disorders: No Hx Renal Disease (ESRD): No Hx Thyroid Disease: No Hx Human Immunodeficiency Virus (HIV): No (last negative 2016) Hx Hepatitis C: No Hx Depression: Yes Hx Suicide Attempt: No Hx Bipolar Disorder: Yes Hx Schizophrenia: No Other Medical History: no suicidal,no homicidal - Patient Surgical History Past Surgical History: No Hx Neurologic Surgery: No Hx Cataract Extraction: No Hx Cardiac Surgery: No Hx Lung Surgery: No Hx Breast Surgery: No Hx Breast Biopsy: No Hx Abdominal Surgery: No Hx Appendectomy: No Hx Cholecystectomy: No Hx Genitourinary Surgery: No Hx Section: No Hx Orthopedic Surgery: No Hx Hysterectomy: No Anesthesia Reaction: No - PPD History Previous Implant?: Yes Documented Results: Negative w/proof Implanted On Prior [facility] Admission?: Yes Date: 07/11/18 Results: 0 mm PPD to be Administered?: No - Reproductive History Patient is a Female of Child Bearing Age (11 -55 yrs old): Yes Last Menstrual Period: 09/30/18 Patient : No - Smoking Cessation Smoking history: Current some day smoker Have you smoked in the past 12 months: Yes Aproximately how many cigarettes per day: 13 If you are a former smoker, when did you quit?: 09/12 Hx Chewing Tobacco Use: No Initiated information on smoking cessation: Yes 'Breaking Loose' booklet given: 10/08/18 - Substance & Tx. History Hx Alcohol Use: Yes Hx Substance Use: No Substance Use Type: Alcohol Hx Substance Use Treatment: Yes ([facility] 09/18/18 to 09/19/18) - Substances abused Alcohol Substance route: Oral Frequency: Daily Amount used: 12 of 24 ozs of beer Age of first use: 15 Date of last use: 10/08/18 Family Disease History - Family Disease History Family Disease History: Other: Father (alcohol,), Mother (alcohol, ) Admission Physical Exam [facility] - Vital Signs Vital Signs: Vital Signs - 24 hr 10/08/18 12:42 Temperature 98.3 F Pulse Rate 75 Respiratory 18 Rate Blood Pressure 83/64 L - Physical General Appearance: Yes: Moderate Distress, Tremorous, Irritable, Sweating, Anxious HEENTM: Yes: Normal ENT Inspection, KAREL, Pharynx Normal Respiratory: Yes: Lungs Clear, Normal Breath Sounds, No Respiratory Distress Neck: Yes: Within Normal Limits, Supple, Trachea in good position Breast: Yes: Breast Exam Deferred Cardiology: Yes: Within Normal Limits, Regular Rhythm, Regular Rate, S1, S2 Abdominal: Yes: Within Normal Limits, Normal Bowel Sounds, Non Tender, Flat, Soft Genitourinary: Yes: Within Normal Limits Back: Yes: Muscle Spasm Musculoskeletal: Yes: full range of Motion, Back pain, Muscle Pain Extremities: Yes: Tremors 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: Yes: Within Normal Limits, clinical statistical programmer II-XII NML intact, Alert, Motor Strength 5/5 Integumentary: Yes: Dry Lymphatic: Yes: Within Normal Limits - Diagnostic (1) Alcohol dependence with uncomplicated withdrawal Current Visit: No Status: Acute (2) Ulcerative colitis Current Visit: No Status: Acute Qualifiers: Ulcerative colitis location: unspecified ulcerative colitis location Digestive disease complication type: unspecified complication Qualified Code(s ): K51.919 - Ulcerative colitis, unspecified with unspecified complications (3) Weight loss Current Visit: No Status: Acute (4) Nicotine dependence Current Visit: No Status: Chronic Qualifiers: Nicotine product type: cigarettes Substance use status: in withdrawal Qualified Code(s): F17.213 - Nicotine dependence, cigarettes, with withdrawal (5) PTSD (post-traumatic stress disorder) Current Visit: No Status: Chronic (6) Seizure Current Visit: No Status: Chronic (7) Alcohol related seizure Current Visit: No Status: Chronic (8) Asthma Current Visit: No Status: Chronic Qualifiers: Asthma severity: mild Asthma persistence: intermittent Asthma complication type: with status asthmaticus Qualified Code(s): J45.22 - Mild intermittent asthma with status asthmaticus (9) Bipolar disorder Current Visit: Yes Status: Acute Cleared for Admission [facility] - Detox or Rehab [facility] Level of Care: Medically Managed Detox Regimen/Protocol: Librium Breathalyzer - Breathalyzer Breathalyzer: 0 POC Urine test - Test device test lot number: [id number] Expiration date: 02/25/20 - Control test control: Yes - Result Urine Test Results: Negative - NO line present Urine Drug Screen - Test Device Lot number: [id number] Expiration date: 05/26/20 - Control Is test valid?: Yes - Results Drug screen NEGATIVE: Yes Inpatient Rehab Admission - Rehab Decision to Admit Inpatient rehab admission?: No
[2018-10-08] MEDS ORDERED: MAG HYDROX/AL HYDROX/SIMETH 30 ML UNIT-DOSE CUP PO PRN (13:07)
[2018-10-08] MEDS ORDERED: MENTHOL/PHENOL 1 EACH UD MM PRN (13:07)
[2018-10-08] MEDS ORDERED: hydrOXYzine PAMOATE 25 MG CAPSULE (FP) PO PRN (13:07)
[2018-10-08] MEDS ORDERED: MAGNESIUM HYDROX 2400MG/30ML ORAL SUSPENSION 30 ML CUP PO PRN (13:07)
[2018-10-08] MEDS ORDERED: BISMUTH SUBSALICYLATE 262 MG/15 ML BTL PO PRN (13:07)
[2018-10-08] MEDS ORDERED: MAGNESIUM CITRATE 300 ML BOTTLE PO PRN (13:07)
[2018-10-08] MEDS ORDERED: MELATONIN 5 MG TABLETS PO PRN (13:07)
[2018-10-08] MEDS ORDERED: IBUPROFEN 400 MG TABLET (FP) PO PRN (13:07)
[2018-10-08] MEDS ORDERED: ACETAMINOPHEN 325 MG TABLET (FP) PO PRN ×2 (13:07)
[2018-10-08] MEDS ORDERED: chlordiazePOXIDE HCL 25 MG CAPSULE PO PRN (13:07)
[2018-10-08] MEDS ORDERED: METHOCARBAMOL 500 MG TABLET PO PRN (13:07)
[2018-10-08] MEDS ORDERED: ALBUTEROL SO4 8 GM HFA INHALER IH PRN (13:58)
[2018-10-08] MEDS: chlordiazePOXIDE HCL 25 MG CAPSULE PO SCH ×2 (17:25→22:29)
[2018-10-08] MEDS ORDERED: LOPERAMIDE HCL 2 MG CAPSULE PO PRN (20:21)
[2018-10-08] MEDS ORDERED: QUEtiapine FUMARATE 100 MG TABLET (FP) PO SCH (22:00)
[2018-10-08] MEDS ORDERED: THIAMINE HCL 100 MG TABLET (FP) PO SCH (22:00)
[2018-10-08] MEDS: levETIRAcetam 500 MG TABLET (FP) PO SCH (22:29)
[2018-10-09] MEDS: chlordiazePOXIDE HCL 25 MG CAPSULE PO SCH ×2 (06:53→11:20)
[2018-10-09 07:35] VITALS: PULSE 71; TEMP 97.7
[2018-10-09 07:37] VITALS: BP 92/59
[2018-10-09 09:57] LABS: HEMATOCRIT 29.8 % (32.4-45.2); HEMOGLOBIN 9.5 GM/dL (10.7-15.3); MCH 23.5 pg (25.7-33.7); MEAN CELL VOLUME 73.6 fl (80-96); MEAN PLT VOLUME 9.4 fl (7.5-11.1); PLATELET COUNT 290 K/MM3 (134-434); RBC 4.05 M/mm3 (3.60-5.2); RDW 19.6 % (11.6-15.6); WHITE BLOOD COUNT 5.5 K/mm3 (4.0-10.0)
[2018-10-09] MEDS ORDERED: RANITIDINE HCL 150 MG TABLET (FP) PO SCH (10:00)
[2018-10-09] MEDS ORDERED: SERTRALINE HCL 50 MG TABLET (FP) PO SCH (10:00)
[2018-10-09] MEDS ORDERED: PRENATAL VITAMINS W/ FOLIC ACID TABLET (FP) PO SCH (10:00)
[2018-10-09 10:17] LABS: ALBUMIN 3.3 g/dl (3.4-5.0); ALK PHOS 110 U/L (45-117); ANION GAP 6 MMOL/L (8-16); BILIRUBIN,TOTAL 0.3 mg/dL (0.2-1); BLOOD UREA NITROGEN 19 mg/dL (7-18); CALCIUM 8.4 mg/dL (8.5-10.1); CHLORIDE 105 mmol/L (98-107); CO2 26 mmol/L (21-32); CREATININE 0.8 mg/dL (0.55-1.3); GLUCOSE,RANDOM 116 mg/dL (74-106); POTASSIUM 3.6 mmol/L (3.5-5.1); SGOT/AST 18 U/L (15-37); SGPT/ALT 16 U/L (13-61); SODIUM 136 mmol/L (136-145); TOT PROT 7.1 g/dl (6.4-8.2)
[2018-10-09] MEDS: levETIRAcetam 500 MG TABLET (FP) PO SCH (11:19)
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
--- NOTE | 2018-10-09 14:19 | PN ---
[facility] Progress Note Note: pt became aggressive with all personal on the unit. Pt refused to get her vitals checked, refused to take any detox medication and refused to speak to psychiatry which an order was placed as per pt request. Pt states she needs to leave and want to go home. Pt signed out AMA. pt did not hesitate to leave the unit.
--- NOTE | 2018-10-09 14:21 | DS ---
[facility] Detox Discharge Summary Admission Date: 10/08/18 - History Present History: Alcohol Dependence, Cocaine Dependence - Physical Exam Results Vital Signs: Vital Signs Temperature 97.7 F 10/09/18 06:00 Pulse Rate 71 10/09/18 06:00 Respiratory Rate 18 10/09/18 06:00 Blood Pressure 92/59 L 10/09/18 06:00 O2 Sat by Pulse Oximetry (%) - Treatment Hospital Course: Discharged Condition Good - Medication Discharge Medications: Ambulatory Orders Mesalamine [Apriso] 0.375 gm PO DAILY 02/27/18 Prazosin HCl 1 mg PO HS 02/27/18 Ranitidine [Zantac -] 150 mg PO DAILY 07/09/18 Sertraline HCl [Zoloft -] 100 mg PO DAILY 09/18/18 Albuterol Sulfate Inhaler - [Ventolin HFA Inhaler -] 1 - 2 inh PO Q4H PRN #1 inhaler 09/19/18 Quetiapine Fumarate [Seroquel] 100 mg PO HS 09/19/18 levETIRAcetam [Keppra -] 500 mg PO BID #60 tablet 09/19/18 Folic Acid - 1 tablet PO DAILY 10/08/18 Thiamine Mononitrate [Vitamin B-1] 100 mg PO DAILY 10/08/18 - AMA Did Patient Leave Against Medical Advice: Yes
[2018-10-09] MEDS ORDERED: chlordiazePOXIDE HCL 25 MG CAPSULE PO SCH (17:00)
[2018-10-10] MEDS ORDERED: chlordiazePOXIDE HCL 10 MG CAPSULE PO PRN (17:00)
[2018-10-10] MEDS ORDERED: chlordiazePOXIDE HCL 10 MG CAPSULE PO SCH (17:00)
[2018-10-11] MEDS ORDERED: chlordiazePOXIDE HCL 10 MG CAPSULE PO SCH (17:00)
== END 2018-10-09 11:31 | disposition left against medical advice (07) | DRG 770 ==
LOC: YASAS 11:44 → Y6N 13:03
PROVIDERS: ADMIT Surgery; ATTEND Surgery
PROC: HZ2ZZZZ Detoxification Services for Substance Abuse Treatment (ICD-10-PCS; principal; 2018-10-08)
DX: F10.230 Alcohol dependence with withdrawal, uncomplicated (principal); F17.213 Nicotine dependence, cigarettes, with withdrawal; F31.9 Bipolar disorder, unspecified; F19.24 Other psychoactive substance dependence with psychoactive substance-induced mood disorder; F43.10 Post-traumatic stress disorder, unspecified; J45.22 Mild intermittent asthma with status asthmaticus; D64.9 Anemia, unspecified; G47.00 Insomnia, unspecified; R63.4 Abnormal weight loss; Z68.21 Body mass index [BMI] 21.0-21.9, adult; Z88.8 Allergy status to other drugs, medicaments and biological substances; Z91.018 Allergy to other foods; Z86.69 Personal history of other diseases of the nervous system and sense organs; Z91.19 Patient's noncompliance with other medical treatment and regimen
CPT/HCPCS: 36415; 80053; 85027; 86593

== ENCOUNTER 2018-10-16 16:07 | Inpatient (IN) | payer OTHER ==
[2018-10-16 21:22] VITALS: BMI 20.7
--- NOTE | 2018-10-16 22:13 | HP ---
CIWA Score Nausea/Vomitin Muscle Tremors: 4-Moderate,w/Arms Extend Anxiety: 3 Agitation: 4-Moderately Restless Paroxysmal Sweats: 2 Orientation: 0-Oriented Tacttile Disturbances: 0-None Auditory Disturbances: 0-None Visual Disturbances: 0-None Headache: 4-Moderately Severe CIWA-Ar Total Score: 19 - Admission Criteria OASAS Guidelines: Admission for Medically Managed Detox: Requires at least one of the followin. CIWA greater than 12 2. Seizures within the past 24 hours 3. Delirium tremens within the past 24 hours 4. Hallucinations within the past 24 hours 5. Acute intervention needed for co occurring medical disorder 6. Acute intervention needed for co occurring psychiatric disorder 7. Severe withdrawal that cannot be handled at a lower level of care (continued vomiting, continued diarrhea, abnormal vital signs) requiring intravenous medication and/or fluids 8. Admission ROS [facility] - [facility] Chief Complaint: Alcohol withdrawal symptoms Allergies/Adverse Reactions: Allergies Allergy/AdvReac Type Severity Reaction Status Date / Time ciprofloxacin [From Cipro] Allergy Verified 10/16/18 21:17 turkey Allergy Verified 10/16/18 21:17 haloperidol [From Haldol] AdvReac Verified 10/16/18 21:17 History of Present Illness: 38 years old female with a long history of alcohol dependence is seeking admission to detox. Patient has left [facility] in the last 2 admissions but reports that she will complete her detox this admission. She has medical history of anemia, asthma, seizures, GERD and depression. She denies suicide attempt and suicidal ideation at this time. Exam Limitations: No Limitations - Ebola screening Have you traveled outside of the country in the last 21 days: No (n) Have you had contact with anyone from an Ebola affected area: No Do you have a fever: No - Review of Systems Constitutional: Chills, Loss of Appetite, Malaise, Changes in sleep EENT: reports: No Symptoms Reported, Sinus Pressure Respiratory: reports: No Symptoms reported Cardiac: reports: No Symptoms Reported GI: reports: Poor Appetite, Poor Fluid Intake, Abdominal cramping : reports: No Symptoms Reported Musculoskeletal: reports: No Symptoms Reported Integumentary: reports: Dryness, Flushing Neuro: reports: Headache, Tremors Endocrine: reports: No Symptoms Reported Hematology: reports: No Symptoms Reported Psychiatric: reports: Mood/Affect Appropiate, Orientated x3 Other Systems: Reviewed and Negative Patient History - Patient Medical History Hx Anemia: Yes (Not complaint with takinf Ferrous Sulfate as ordered) Hx Asthma: Yes (Albuterol) Hx Chronic Obstructive Pulmonary Disease (COPD): No Hx Cancer: No Hx Cardiac Disorders: No Hx Congestive Heart Failure: No Hx Hypertension: No Hx Hypercholesterolemia: No Hx Pacemaker: No HX Cerebrovascular Accident: No Hx Seizures: Yes (etoh related last 09/02/2018) Hx Dementia: No Hx Diabetes: No Hx Gastrointestinal Disorders: Yes (GERD - NOT ON MEDICATION) Hx Liver Disease: No Hx Genitourinary Disorders: No Hx Sexually Transmitted Disorders: No Hx Renal Disease (ESRD): No Hx Thyroid Disease: No Hx Human Immunodeficiency Virus (HIV): No (last negative 2016) Hx Hepatitis C: No Hx Depression: Yes (NOT ON MEDICATION) Hx Suicide Attempt: No Hx Bipolar Disorder: Yes (ZOLOFT) Hx Schizophrenia: No - Patient Surgical History Past Surgical History: No Hx Neurologic Surgery: No Hx Cataract Extraction: No Hx Cardiac Surgery: No Hx Lung Surgery: No Hx Breast Surgery: No Hx Breast Biopsy: No Hx Abdominal Surgery: No Hx Appendectomy: No Hx Cholecystectomy: No Hx Genitourinary Surgery: No Hx Section: No Hx Orthopedic Surgery: No Hx Hysterectomy: No Anesthesia Reaction: No - PPD History Date: 07/11/18 Results: 0 mm PPD to be Administered?: No - Reproductive History Patient is a Female of Child Bearing Age (11 -55 yrs old): Yes Last Menstrual Period: 09/30/18 Patient : No - Smoking Cessation Smoking history: Current some day smoker Have you smoked in the past 12 months: Yes Aproximately how many cigarettes per day: 13 If you are a former smoker, when did you quit?: 09/12 Hx Chewing Tobacco Use: No Initiated information on smoking cessation: Yes 'Breaking Loose' booklet given: 10/16/18 - Substance & Tx. History Hx Alcohol Use: Yes Hx Substance Use: Yes Substance Use Type: Alcohol, Cocaine Hx Substance Use Treatment: Yes - Substances abused Alcohol Substance route: Oral Frequency: Daily Amount used: 12 of 24 ozs of beer Age of first use: 15 Date of last use: 10/16/18 Cocaine Substance route: Smoking Frequency: Daily Amount used: 1 BAG Age of first use: 38 Date of last use: 10/15/18 Family Disease History - Family Disease History Family Disease History: Other: Father (alcohol,), Mother (alcohol, ) Admission Physical Exam [facility] - Vital Signs Vital Signs: Vital Signs - 24 hr 10/16/18 21:14 Temperature 97.3 F L Pulse Rate 99 H Respiratory 18 Rate Blood Pressure 100/62 - Physical General Appearance: Yes: Moderate Distress, Tremorous, Irritable, Anxious HEENTM: Yes: EOMI, Normal ENT Inspection, Normal Voice, KAREL Respiratory: Yes: Lungs Clear, Normal Breath Sounds, No Respiratory Distress Neck: Yes: Supple Breast: Yes: Breast Exam Deferred Cardiology: Yes: Tachycardia Abdominal: Yes: Normal Bowel Sounds Genitourinary: Yes: Within Normal Limits Back: Yes: Normal Inspection Extremities: Yes: Tremors 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: Yes: Alert, Normal Mood/Affect Integumentary: Yes: Warm Lymphatic: Yes: Within Normal Limits - Diagnostic (1) Alcohol dependence with uncomplicated withdrawal Current Visit: Yes Status: Chronic (2) Cocaine dependence Current Visit: Yes Status: Chronic Qualifiers: Substance use status: uncomplicated Qualified Code(s): F14.20 - Cocaine dependence, uncomplicated (3) Microcytic anemia Current Visit: Yes Status: Chronic (4) Asthma Current Visit: No Status: Chronic Qualifiers: Asthma severity: mild Asthma persistence: intermittent Asthma complication type: with status asthmaticus Qualified Code(s): J45.22 - Mild intermittent asthma with status asthmaticus (5) Alcohol related seizure Current Visit: Yes Status: Chronic (6) GERD (gastroesophageal reflux disease) Current Visit: Yes Status: Chronic Qualifiers: Esophagitis presence: without esophagitis Qualified Code(s): K21.9 - Gastro -esophageal reflux disease without esophagitis (7) Nicotine dependence Current Visit: Yes Status: Chronic Qualifiers: Nicotine product type: cigarettes Substance use status: in withdrawal Qualified Code(s): F17.213 - Nicotine dependence, cigarettes, with withdrawal (8) Depression (emotion) Current Visit: No Status: Suspected Qualifiers: Depression Type: dysthymia Qualified Code(s): F34.1 - Dysthymic disorder Cleared for Admission [facility] - Detox or Rehab [facility] Level of Care: Medically Managed Detox Regimen/Protocol: Librium Breathalyzer - Breathalyzer Breathalyzer: 0.027 POC Urine test - Test device test lot number: [id number] Expiration date: 02/25/20 - Control test control: Yes - Result Urine Test Results: Negative - NO line present Urine Drug Screen - Test Device Lot number: [id number] Expiration date: 05/26/20 - Control Is test valid?: Yes - Results Drug screen NEGATIVE: No Urine drug screen results: MATEO-Cocaine, BZO-Benzodiazepines Inpatient Rehab Admission - Rehab Decision to Admit Inpatient rehab admission?: No
[2018-10-16] MEDS ORDERED: MAGNESIUM HYDROX 2400MG/30ML ORAL SUSPENSION 30 ML CUP PO PRN (22:36)
[2018-10-16] MEDS ORDERED: METHOCARBAMOL 500 MG TABLET PO PRN (22:36)
[2018-10-16] MEDS ORDERED: NICOTINE POLACRILEX 2 MG GUM BUC PRN (22:36)
[2018-10-16] MEDS ORDERED: MAG HYDROX/AL HYDROX/SIMETH 30 ML UNIT-DOSE CUP PO PRN (22:36)
[2018-10-16] MEDS ORDERED: MELATONIN 5 MG TABLETS PO PRN (22:36)
[2018-10-16] MEDS ORDERED: MAGNESIUM CITRATE 300 ML BOTTLE PO PRN (22:36)
[2018-10-16] MEDS ORDERED: BISMUTH SUBSALICYLATE 524 MG/30 ML UD PO PRN (22:36)
[2018-10-16] MEDS ORDERED: hydrOXYzine PAMOATE 25 MG CAPSULE (FP) PO PRN (22:36)
[2018-10-16] MEDS ORDERED: MENTHOL/PHENOL 1 EACH UD MM PRN (22:36)
[2018-10-16] MEDS ORDERED: ACETAMINOPHEN 325 MG TABLET (FP) PO PRN ×2 (22:36)
[2018-10-16] MEDS ORDERED: IBUPROFEN 400 MG TABLET (FP) PO PRN (22:36)
[2018-10-16] MEDS ORDERED: chlordiazePOXIDE HCL 25 MG CAPSULE PO PRN (22:37)
[2018-10-17] MEDS: chlordiazePOXIDE HCL 25 MG CAPSULE PO SCH ×5 (00:23→22:45)
[2018-10-17] MEDS ORDERED: NICOTINE 14 MG/24 HOURS TOPICAL PATCH TD SCH (10:00)
[2018-10-17] MEDS ORDERED: PRENATAL VITAMINS W/ FOLIC ACID TABLET (FP) PO SCH (10:00)
[2018-10-17 10:08] LABS: ALBUMIN 3.3 g/dl (3.4-5.0); ALK PHOS 114 U/L (45-117); ANION GAP 6 MMOL/L (8-16); BILIRUBIN,TOTAL 0.4 mg/dL (0.2-1); BLOOD UREA NITROGEN 15 mg/dL (7-18); CALCIUM 8.6 mg/dL (8.5-10.1); CHLORIDE 102 mmol/L (98-107); CO2 27 mmol/L (21-32); CREATININE 0.7 mg/dL (0.55-1.3); GLUCOSE,RANDOM 77 mg/dL (74-106); POTASSIUM 3.8 mmol/L (3.5-5.1); SGOT/AST 15 U/L (15-37); SGPT/ALT 16 U/L (13-61); SODIUM 134 mmol/L (136-145)
[2018-10-17 10:12] LABS: HEMATOCRIT 29.9 % (32.4-45.2); HEMOGLOBIN 9.6 GM/dL (10.7-15.3); MCH 23.8 pg (25.7-33.7); MCHC 32.1 g/dl (32.0-36.0); MEAN CELL VOLUME 74.2 fl (80-96); MEAN PLT VOLUME 9.3 fl (7.5-11.1); PLATELET COUNT 257 K/MM3 (134-434); RBC 4.03 M/mm3 (3.60-5.2); RDW 19.7 % (11.6-15.6); WHITE BLOOD COUNT 8.9 K/mm3 (4.0-10.0)
[2018-10-17] MEDS ORDERED: ALBUTEROL SO4 8 GM HFA INHALER IH PRN (11:08)
[2018-10-17] MEDS ORDERED: ONDANSETRON *ODT* 4 MG TABLET SL PRN (11:10)
[2018-10-17] MEDS ORDERED: RANITIDINE HCL 150 MG TABLET (FP) PO SCH (11:15)
[2018-10-17] MEDS ORDERED: DOCUSATE SODIUM 100 MG CAPSULE (FP) PO SCH (11:15)
[2018-10-17] MEDS: levETIRAcetam 500 MG TABLET (FP) PO SCH ×2 (11:56→22:44)
[2018-10-17] MEDS: FERROUS SO4 325 MG TABLET (FP) PO SCH ×2 (11:56→17:15)
--- NOTE | 2018-10-17 12:38 | EKG ---
Test Reason : Blood Pressure : / mmHG Vent. Rate : 067 BPM Atrial Rate : 067 BPM P-R Int : 162 ms QRS Dur : 090 ms QT Int : 408 ms P-R-T Axes : 070 084 055 degrees QTc Int : 431 ms NORMAL SINUS RHYTHM NORMAL ECG Confirmed by MD ANTHONY, SANDI ([id number]) on 10/17/2018 12:38:47 PM Referred By: BRITTANY PAULINO Confirmed By:SANDI CRUZ MD
[2018-10-17] MEDS ORDERED: WITCH HAZEL 50% (TUCKS) 40 PAD/JAR PAD TP PRN (13:17)
[2018-10-17] MEDS ORDERED: BENZOCAINE 28 GM HEMORRHOIDAL OINTMENT PR PRN (13:18)
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
--- NOTE | 2018-10-17 17:17 | PN ---
S CIWA - CIWA Score Nausea/Vomitin Muscle Tremors: None Anxiety: 4-Mod. Anxious/Guarded Agitation: 3 Paroxysmal Sweats: 2 Orientation: 0-Oriented Tacttile Disturbances: 2-Mild Itch/Numbness/Burn Auditory Disturbances: 0-None Visual Disturbances: 2-Mild Sensitivity Headache: 0-None Present CIWA-Ar Total Score: 16 BHS Progress Note (SOAP) Subjective: Interrupted Sleep, Nausea, Anxious, Constipation. Objective: PATIENT A & O X 3, OBSERVED AMBULATING ON UNIT UNASSISTED. IN NO ACUTE DISTRESS. 10/17/18 17:13 Vital Signs Temperature 97.6 F 10/17/18 13:28 Pulse Rate 84 10/17/18 13:35 Respiratory Rate 18 10/17/18 13:28 Blood Pressure 103/65 10/17/18 13:35 O2 Sat by Pulse Oximetry (%) Laboratory Tests 10/17/18 10/17/18 10/17/18 07:00 07:00 07:00 WBC 8.9 RBC 4.03 Hgb 9.6 L Hct 29.9 L MCV 74.2 L MCH 23.8 L MCHC 32.1 RDW 19.7 H Plt Count 257 MPV 9.3 Sodium 134 L Potassium 3.8 Chloride 102 Carbon Dioxide 27 Anion Gap 6 L BUN 15 Creatinine 0.7 Creat Clearance w eGFR 94.68 Random Glucose 77 Calcium 8.6 Total Bilirubin 0.4 AST 15 ALT 16 Alkaline Phosphatase 114 Total Protein 7.0 Albumin 3.3 L RPR Titer Nonreactive LABS NOTED. PATIENT REPORTS HISTORY OF ANEMIA, FOR WHICH SHE HAS BEEN TREATED WITH IRON SUPPLEMENTATION IN THE PAST. PATIENT HAS BEEN ANEMIC ON PREVIOUS ADMISSIONS. 10/17/18 17:14 Assessment: 10/17/18 17:15 WITHDRAWAL SYMPTOMS. ANEMIA (MICROCYTIC). Plan: CONTINUE DETOX. INCREASE DAILY PO FLUID / WATER INTAKE. FEOSOL, 325 MG PO TIDCM. REPEAT CBC ON 10/19/2018 TO SEE IF ANY CHANGE IN VALUES. PATIENT REPORTS POOR EFFECT FOR CONSTIPATION WITH MOM IN THE PAST. COLACE, 100 MG PO TID ORDERED.
[2018-10-17] MEDS ORDERED: MESALAMINE 800 MG TABLET.DR PO SCH ×2 (17:30→17:33)
[2018-10-17] MEDS ORDERED: QUEtiapine FUMARATE 100 MG TABLET (FP) PO SCH (22:00)
[2018-10-17] MEDS ORDERED: THIAMINE HCL 100 MG TABLET (FP) PO SCH (22:00)
[2018-10-17] MEDS ORDERED: PRAZOSIN HCL 1 MG CAPSULE PO SCH (22:00)
[2018-10-17] MEDS: DOCUSATE SODIUM 100 MG CAPSULE (FP) PO SCH (22:44)
[2018-10-17] MEDS: MESALAMINE 800 MG TABLET.DR PO SCH (22:44)
[2018-10-18] MEDS: chlordiazePOXIDE HCL 25 MG CAPSULE PO SCH (06:14)
[2018-10-18 06:48] VITALS: BP 98/61; PULSE 74; TEMP 97.8
[2018-10-18] MEDS: DOCUSATE SODIUM 100 MG CAPSULE (FP) PO SCH (07:15)
[2018-10-18] MEDS: MESALAMINE 800 MG TABLET.DR PO SCH (07:15)
[2018-10-18] MEDS ORDERED: FERROUS SO4 325 MG TABLET (FP) PO SCH (08:00)
[2018-10-18] MEDS ORDERED: SERTRALINE HCL 50 MG TABLET (FP) PO SCH (10:00)
--- NOTE | 2018-10-18 11:14 | DS ---
[facility] Detox Discharge Summary Admission Date: 10/16/18 Discharge Date: 10/18/18 - History Present History: Alcohol Dependence Additional Comments: 38 years old female admitted on 10/16/18 for alcohol withdrawal stabilization alert no acute distress aftercare as per counselor arrangement history of multiple detox admission with multiple against medical advice praised the patient that she stayed two days in detox strong recommend the patient to go to community self help group Pertinent Past History: bring in medication list and lab report to aftercare appointment encourage the patient to bring in own IBS medications "I do not have" recommend the patient to go to [facility] or urgent care or [facility] for medical condition such as IBS - Physical Exam Results Vital Signs: Vital Signs Temperature 97.8 F 10/18/18 06:48 Pulse Rate 74 10/18/18 06:48 Respiratory Rate 18 10/18/18 06:48 Blood Pressure 98/61 10/18/18 06:48 O2 Sat by Pulse Oximetry (%) Pertinent Admission Physical Exam Findings: alcohol withdrawal sx Laboratory Last Values WBC 8.9 K/mm3 (4.0-10.0) 10/17/18 07:00 RBC 4.03 M/mm3 (3.60-5.2) 10/17/18 07:00 Hgb 9.6 GM/dL (10.7-15.3) L 10/17/18 07:00 Hct 29.9 % (32.4-45.2) L 10/17/18 07:00 MCV 74.2 fl (80-96) L 10/17/18 07:00 MCH 23.8 pg (25.7-33.7) L 10/17/18 07:00 MCHC 32.1 g/dl (32.0-36.0) 10/17/18 07:00 RDW 19.7 % (11.6-15.6) H 10/17/18 07:00 Plt Count 257 K/MM3 (134-434) 10/17/18 07:00 MPV 9.3 fl (7.5-11.1) 10/17/18 07:00 Sodium 134 mmol/L (136-145) L 10/17/18 07:00 Potassium 3.8 mmol/L (3.5-5.1) 10/17/18 07:00 Chloride 102 mmol/L (98-107) 10/17/18 07:00 Carbon Dioxide 27 mmol/L (21-32) 10/17/18 07:00 Anion Gap 6 MMOL/L (8-16) L 10/17/18 07:00 BUN 15 mg/dL (7-18) 10/17/18 07:00 Creatinine 0.7 mg/dL (0.55-1.3) 10/17/18 07:00 Creat Clearance w eGFR 94.68 (>60) 10/17/18 07:00 Random Glucose 77 mg/dL (74-106) 10/17/18 07:00 Calcium 8.6 mg/dL (8.5-10.1) 10/17/18 07:00 Total Bilirubin 0.4 mg/dL (0.2-1) 10/17/18 07:00 AST 15 U/L (15-37) 10/17/18 07:00 ALT 16 U/L (13-61) 10/17/18 07:00 Alkaline Phosphatase 114 U/L (45-117) 10/17/18 07:00 Total Protein 7.0 g/dl (6.4-8.2) 10/17/18 07:00 Albumin 3.3 g/dl (3.4-5.0) L 10/17/18 07:00 RPR Titer Nonreactive (NONREACTIVE) 10/17/18 07:00 lab noted - Treatment Hospital Course: Detox Protocol Followed, Responded well Patient has Accepted a Rehab Referral to: as per counselor arrangement - Medication Discharge Medications: Ambulatory Orders Mesalamine [Apriso] 0.375 gm PO DAILY 02/27/18 Prazosin HCl 1 mg PO HS 02/27/18 Ranitidine [Zantac -] 150 mg PO DAILY 07/09/18 Sertraline HCl [Zoloft -] 100 mg PO DAILY 09/18/18 Albuterol Sulfate Inhaler - [Ventolin HFA Inhaler -] 1 - 2 inh PO Q4H PRN #1 inhaler 09/19/18 Quetiapine Fumarate [Seroquel] 100 mg PO HS 09/19/18 levETIRAcetam [Keppra -] 500 mg PO BID #60 tablet 09/19/18 - Diagnosis (1) Alcohol dependence with uncomplicated withdrawal Status: Acute (2) Weight loss Status: Acute (3) Asthma Status: Chronic Qualifiers: Asthma severity: mild Asthma persistence: intermittent Asthma complication type: with status asthmaticus Qualified Code(s): J45.22 - Mild intermittent asthma with status asthmaticus (4) GERD (gastroesophageal reflux disease) Status: Chronic Qualifiers: Esophagitis presence: without esophagitis Qualified Code(s): K21.9 - Gastro -esophageal reflux disease without esophagitis (5) Nicotine dependence Status: Acute Qualifiers: Nicotine product type: cigarettes Substance use status: in withdrawal Qualified Code(s): F17.213 - Nicotine dependence, cigarettes, with withdrawal (6) Seizure Status: Chronic (7) Substance induced mood disorder Status: Suspected - AMA Did Patient Leave Against Medical Advice: Yes
[2018-10-18] MEDS ORDERED: chlordiazePOXIDE HCL 10 MG CAPSULE PO PRN (23:00)
[2018-10-18] MEDS ORDERED: chlordiazePOXIDE HCL 10 MG CAPSULE PO SCH (23:00)
[2018-10-19] MEDS ORDERED: chlordiazePOXIDE HCL 10 MG CAPSULE PO SCH (23:00)
== END 2018-10-18 10:40 | disposition left against medical advice (07) | DRG 770 ==
LOC: YASAS 16:07 → Y3N 23:15
PROVIDERS: ADMIT Surgery; ATTEND Surgery
PROC: HZ2ZZZZ Detoxification Services for Substance Abuse Treatment (ICD-10-PCS; principal; 2018-10-16)
DX: F10.230 Alcohol dependence with withdrawal, uncomplicated (principal); F14.20 Cocaine dependence, uncomplicated; F17.213 Nicotine dependence, cigarettes, with withdrawal; F19.24 Other psychoactive substance dependence with psychoactive substance-induced mood disorder; F34.1 Dysthymic disorder; F31.9 Bipolar disorder, unspecified; F43.10 Post-traumatic stress disorder, unspecified; J45.22 Mild intermittent asthma with status asthmaticus; K21.9 Gastro-esophageal reflux disease without esophagitis; G40.509 Epileptic seizures related to external causes, not intractable, without status epilepticus; G47.00 Insomnia, unspecified; D50.9 Iron deficiency anemia, unspecified; Z88.1 Allergy status to other antibiotic agents; Z91.018 Allergy to other foods; Z91.19 Patient's noncompliance with other medical treatment and regimen
CPT/HCPCS: 36415; 80053; 85027; 86593; 93005; 93010

== ENCOUNTER 2024-01-04 09:22 | Inpatient (IN) | payer OTHER ==
[2024-01-04 09:59] VITALS: BMI 25.4
[2024-01-04] MEDS ORDERED: guaiFENesin 600 MG TABLET.ER (FP) PO PRN (10:05)
[2024-01-04] MEDS ORDERED: DICYCLOMINE HCL 10 MG CAPSULE PO PRN (10:05)
[2024-01-04] MEDS ORDERED: BENZOCAINE/MENTHOL (CHLORASEPTIC ) LOZENGE MM PRN (10:05)
[2024-01-04] MEDS ORDERED: BENZONATATE 200 MG CAPSULE PO PRN (10:05)
[2024-01-04] MEDS ORDERED: ACETAMINOPHEN 325 MG TABLET (FP) PO PRN (10:05)
[2024-01-04] MEDS ORDERED: MAGNESIUM HYDROX 2400MG/30ML ORAL SUSPENSION 30 ML CUP PO PRN (10:05)
[2024-01-04] MEDS ORDERED: BISMUTH SUBSALICYLATE 524 MG/30 ML PO PRN (10:05)
[2024-01-04] MEDS ORDERED: LOPERAMIDE HCL 2 MG CAPSULE PO PRN (10:05)
[2024-01-04] MEDS ORDERED: IBUPROFEN 400 MG TABLET (FP) PO PRN (10:05)
[2024-01-04] MEDS ORDERED: levETIRAcetam 500 MG TABLET (FP) PO ONE (10:58)
[2024-01-04] MEDS: levETIRAcetam 500 MG TABLET (FP) PO SCH (11:02)
[2024-01-04] MEDS: IBUPROFEN 600 MG TABLET (FP) PO PRN (11:33)
[2024-01-04] MEDS ORDERED: MESALAMINE 0.375 GM PO SCH (15:45)
[2024-01-04] MEDS: ONDANSETRON *ODT* 4 MG TABLET SL PRN (16:34)
[2024-01-04] MEDS: hydrOXYzine PAMOATE 25 MG CAPSULE (FP) PO PRN (16:34)
[2024-01-04] MEDS: MAG HYDROX/AL HYDROX/SIMETH 30 ML UNIT-DOSE CUP PO PRN (19:14)
[2024-01-04] MEDS: POLYETHYLENE GLYCOL (HEALTHYLAX) 3350 17 GM PACKET PO PRN (20:46)
[2024-01-04] MEDS: PRAZOSIN HCL 1 MG CAPSULE PO SCH (21:12)
[2024-01-04] MEDS: QUEtiapine FUMARATE 50 MG TABLET PO ONE (21:12)
[2024-01-04] MEDS: METHOCARBAMOL 500 MG TABLET PO PRN (21:12)
[2024-01-04] MEDS: THIAMINE 100 MG TABLET PO SCH (21:13)
[2024-01-04] MEDS: MELATONIN 5 MG TABLETS PO SCH (21:13)
[2024-01-05] MEDS ORDERED: chlordiazePOXIDE HCL 25 MG CAPSULE PO PRN (09:52)
[2024-01-05] MEDS: PRENATAL VITAMINS W/ FOLIC ACID TABLET (FP) PO SCH (10:50)
[2024-01-05 11:34] LABS: HEMATOCRIT 34.1 % (32.4-45.2); HEMOGLOBIN 11.1 GM/dL (10.7-15.3); MCH 27.8 pg (25.7-33.7); MCHC 32.6 g/dl (32.0-36.0); MEAN CELL VOLUME 85.4 fl (80-96); MEAN PLT VOLUME 8.9 fl (7.5-11.1); PLATELET COUNT 336 10^3/uL (134-434); RBC 3.99 M/mm3 (3.60-5.2); WHITE BLOOD COUNT 8.1 K/mm3 (4.0-10.0)
[2024-01-05 11:52] LABS: CHLORIDE 105 mmol/L (98-107); POTASSIUM 4.4 mmol/L (3.5-5.1); SODIUM 137 mmol/L (136-145)
[2024-01-05 12:11] LABS: BLOOD UREA NITROGEN 15.6 mg/dL (7-18); CALCIUM 9.1 mg/dL (8.5-10.1)
[2024-01-05 12:12] LABS: ALBUMIN 3.4 g/dl (3.4-5.0); ANION GAP 6 mmol/L (4-13); CO2 27 mmol/L (21-32); GLUCOSE,RANDOM 100 mg/dL (74-106)
[2024-01-05 12:14] LABS: CREATININE 0.8 mg/dL (0.55-1.3); SGOT/AST 18 U/L (15-37); SGPT/ALT 29 U/L (13-61)
[2024-01-05 12:16] LABS: BILIRUBIN,TOTAL 0.2 mg/dL (0.2-1); TOT PROT 7.5 g/dl (6.4-8.2)
[2024-01-05 12:17] LABS: ALK PHOS 121 U/L (45-117)
[2024-01-05] MEDS: MESALAMINE 800 MG TABLET.DR PO SCH (16:33)
[2024-01-05] MEDS: chlordiazePOXIDE HCL 25 MG CAPSULE PO SCH (17:32)
[2024-01-05 20:17] LABS: HIV INTERPRETATION NEGATIVE (NEGATIVE)
[2024-01-05] MEDS: QUEtiapine FUMARATE 100 MG TABLET (FP) PO SCH (22:50)
[2024-01-06] MEDS: chlordiazePOXIDE HCL 25 MG CAPSULE PO SCH (05:55)
[2024-01-06] MEDS: ALBUTEROL SO4 HFA INHALER IH PRN (15:29)
[2024-01-07] MEDS: chlordiazePOXIDE HCL 10 MG CAPSULE PO SCH (05:48)
[2024-01-08] MEDS: chlordiazePOXIDE HCL 10 MG CAPSULE PO SCH (05:57)
[2024-01-08 17:09] VITALS: RESP 18
[2024-01-08 21:16] VITALS: BP 96/68; PULSE 90; TEMP 97.7
[2024-01-09] MEDS: chlordiazePOXIDE HCL 10 MG CAPSULE PO ONE (05:59)
== END 2024-01-09 08:52 | disposition other institution (70) | DRG 774 ==
LOC: YASAS 09:22 → UNDOADMIN 10:38 → Y6N 10:38
PROVIDERS: ADMIT Allergy & Immunology; ATTEND Surgery
PROC: HZ2ZZZZ Detoxification Services for Substance Abuse Treatment (ICD-10-PCS; principal; 2024-01-04)
DX: F10.230 Alcohol dependence with withdrawal, uncomplicated (principal); F14.10 Cocaine abuse, uncomplicated; F19.280 Other psychoactive substance dependence with psychoactive substance-induced anxiety disorder; F19.282 Other psychoactive substance dependence with psychoactive substance-induced sleep disorder; F31.9 Bipolar disorder, unspecified; F43.10 Post-traumatic stress disorder, unspecified; G40.909 Epilepsy, unspecified, not intractable, without status epilepticus; J45.20 Mild intermittent asthma, uncomplicated; K51.919 Ulcerative colitis, unspecified with unspecified complications; Z62.810 Personal history of physical and sexual abuse in childhood; Z91.410 Personal history of adult physical and sexual abuse; Z63.8 Other specified problems related to primary support group; Z63.0 Problems in relationship with spouse or partner
CPT/HCPCS: 36415; 80053; 80305; 80307; 81025; 85027; 86780; 86803; 87389; 93005; 93010; Q0162

== ENCOUNTER 2024-06-27 09:45 | Inpatient (IN) | payer OTHER ==
[2024-06-27 10:23] VITALS: BMI 26.6
[2024-06-27] MEDS ORDERED: MAG HYDROX/AL HYDROX/SIMETH 30 ML UNIT-DOSE CUP PO PRN (10:54)
[2024-06-27] MEDS ORDERED: ACETAMINOPHEN 325 MG TABLET (FP) PO PRN (10:54)
[2024-06-27] MEDS ORDERED: LOPERAMIDE HCL 2 MG CAPSULE PO PRN (10:54)
[2024-06-27] MEDS ORDERED: BENZOCAINE/MENTHOL (CHLORASEPTIC ) LOZENGE MM PRN (10:54)
[2024-06-27] MEDS ORDERED: MAGNESIUM HYDROX 2400MG/30ML ORAL SUSPENSION 30 ML CUP PO PRN (10:54)
[2024-06-27] MEDS ORDERED: DICYCLOMINE HCL 10 MG CAPSULE PO PRN (10:54)
[2024-06-27] MEDS ORDERED: BISMUTH SUBSALICYLATE 524 MG/30 ML PO PRN (10:54)
[2024-06-27] MEDS ORDERED: NALOXONE (NARCAN) HCL 4 MG/0.1 ML SPRAY NS PRN (10:54)
[2024-06-27] MEDS ORDERED: BENZONATATE 200 MG CAPSULE PO PRN (10:54)
[2024-06-27] MEDS ORDERED: POLYETHYLENE GLYCOL (HEALTHYLAX) 3350 17 GM PACKET PO PRN (10:54)
[2024-06-27] MEDS ORDERED: guaiFENesin 600 MG TABLET.ER (FP) PO PRN (10:54)
[2024-06-27] MEDS ORDERED: hydrOXYzine PAMOATE 25 MG CAPSULE (FP) PO PRN (10:54)
[2024-06-27] MEDS ORDERED: IBUPROFEN 400 MG TABLET (FP) PO PRN (10:54)
[2024-06-27] MEDS ORDERED: chlordiazePOXIDE HCL 25 MG CAPSULE ONE (11:45)
[2024-06-27] MEDS ORDERED: levETIRAcetam 500 MG TABLET (FP) PO ONE (11:46)
[2024-06-27] MEDS: levETIRAcetam 500 MG TABLET (FP) PO ONE (11:47)
[2024-06-27] MEDS: chlordiazePOXIDE HCL 25 MG CAPSULE PO SCH (11:48)
[2024-06-27] MEDS ORDERED: ALBUTEROL SO4 HFA INHALER IH PRN (11:50)
[2024-06-27] MEDS: METHOCARBAMOL 500 MG TABLET PO PRN (17:19)
[2024-06-27] MEDS: MELATONIN 5 MG TABLETS PO SCH (22:53)
[2024-06-27] MEDS: QUEtiapine FUMARATE 100 MG TABLET (FP) PO SCH (22:53)
[2024-06-27] MEDS: THIAMINE 100 MG TABLET PO SCH (22:53)
[2024-06-27] MEDS: PRAZOSIN HCL 1 MG CAPSULE PO SCH (22:56)
[2024-06-28] MEDS: PRENATAL VITAMINS W/ FOLIC ACID TABLET (FP) PO SCH (10:22)
[2024-06-28] MEDS: levETIRAcetam 500 MG TABLET (FP) PO SCH (10:23)
[2024-06-28] MEDS: IBUPROFEN 600 MG TABLET (FP) PO PRN (10:25)
[2024-06-28] MEDS: ONDANSETRON *ODT* 4 MG TABLET SL PRN (10:25)
[2024-06-28 11:15] LABS: HEMATOCRIT 37.1 % (32.4-45.2); HEMOGLOBIN 12.2 GM/dL (10.7-15.3); MCH 28.2 pg (25.7-33.7); MEAN CELL VOLUME 85.4 fl (80-96); MEAN PLT VOLUME 9.5 fl (7.5-11.1); PLATELET COUNT 221 10^3/uL (134-434); RBC 4.35 M/mm3 (3.60-5.2); RDW 14.6 % (11.6-15.6); WHITE BLOOD COUNT 6.3 K/mm3 (4.0-10.0)
[2024-06-28 11:16] LABS: CHLORIDE 109 mmol/L (98-107); POTASSIUM 4.3 mmol/L (3.5-5.1); SODIUM 138 mmol/L (136-145)
[2024-06-28 11:18] LABS: ALBUMIN 3.3 g/dl (3.4-5.0); ANION GAP 6 mmol/L (4-13); BLOOD UREA NITROGEN 20.8 mg/dL (7-18); CALCIUM 8.8 mg/dL (8.5-10.1); CO2 22 mmol/L (21-32); GLUCOSE,RANDOM 105 mg/dL (74-106)
[2024-06-28 11:22] LABS: CREATININE 0.8 mg/dL (0.55-1.3); SGOT/AST 14 U/L (15-37); SGPT/ALT 16 U/L (13-61)
[2024-06-28 11:24] LABS: BILIRUBIN,TOTAL 0.3 mg/dL (0.2-1); TOT PROT 6.8 g/dl (6.4-8.2)
[2024-06-28 11:25] LABS: ALK PHOS 99 U/L (45-117)
[2024-06-29] MEDS: chlordiazePOXIDE HCL 25 MG CAPSULE PO SCH (05:45)
[2024-06-29] MEDS: chlordiazePOXIDE HCL 25 MG CAPSULE PO PRN (10:50)
[2024-06-29] MEDS: NALOXONE (NYS OPIOID OVERDOSE PROGRAM) 4 MG/0.1 ML SPRAY NS SCH (17:50)
[2024-06-29 18:40] VITALS: BP 120/80; PULSE 70; RESP 16; TEMP 97.3
[2024-06-30] MEDS ORDERED: chlordiazePOXIDE HCL 10 MG CAPSULE PO PRN
[2024-06-30] MEDS ORDERED: chlordiazePOXIDE HCL 10 MG CAPSULE PO SCH (05:00)
[2024-07-01] MEDS ORDERED: chlordiazePOXIDE HCL 10 MG CAPSULE PO SCH (05:00)
[2024-07-02] MEDS ORDERED: chlordiazePOXIDE HCL 10 MG CAPSULE PO ONE (05:00)
== END 2024-06-29 17:50 | disposition left against medical advice (07) | DRG 770 ==
LOC: YASAS 09:45 → Y6N 11:37
PROVIDERS: ADMIT Psychiatry & Neurology Pain Medicine; ATTEND Family Medicine Addiction Medicine
PROC: HZ2ZZZZ Detoxification Services for Substance Abuse Treatment (ICD-10-PCS; principal; 2024-06-27)
DX: F10.230 Alcohol dependence with withdrawal, uncomplicated (principal); F14.20 Cocaine dependence, uncomplicated; F17.210 Nicotine dependence, cigarettes, uncomplicated; F19.282 Other psychoactive substance dependence with psychoactive substance-induced sleep disorder; F34.1 Dysthymic disorder; F43.10 Post-traumatic stress disorder, unspecified; G40.909 Epilepsy, unspecified, not intractable, without status epilepticus; K21.9 Gastro-esophageal reflux disease without esophagitis; Z62.810 Personal history of physical and sexual abuse in childhood; Z63.8 Other specified problems related to primary support group; Z87.19 Personal history of other diseases of the digestive system; Z88.1 Allergy status to other antibiotic agents
CPT/HCPCS: 36415; 80053; 80305; 80307; 81025; 85027; 86780; 93005; 93010; Q0162

== ENCOUNTER 2024-09-01 09:50 | Inpatient (IN) | payer OTHER ==
[2024-09-01 10:21] VITALS: BMI 26.6
[2024-09-01] MEDS ORDERED: guaiFENesin 600 MG TABLET.ER (FP) PO PRN (10:47)
[2024-09-01] MEDS ORDERED: NALOXONE (NARCAN) HCL 4 MG/0.1 ML SPRAY NS PRN (10:47)
[2024-09-01] MEDS ORDERED: LOPERAMIDE HCL 2 MG CAPSULE PO PRN (10:47)
[2024-09-01] MEDS ORDERED: IBUPROFEN 400 MG TABLET (FP) PO PRN (10:47)
[2024-09-01] MEDS ORDERED: BENZOCAINE/MENTHOL (CHLORASEPTIC ) LOZENGE MM PRN (10:47)
[2024-09-01] MEDS ORDERED: MAGNESIUM HYDROX 2400MG/30ML ORAL SUSPENSION 30 ML CUP PO PRN (10:47)
[2024-09-01] MEDS ORDERED: MAG HYDROX/AL HYDROX/SIMETH 30 ML UNIT-DOSE CUP PO PRN (10:47)
[2024-09-01] MEDS ORDERED: NICOTINE POLACRILEX 2 MG GUM BUC PRN (10:47)
[2024-09-01] MEDS ORDERED: POLYETHYLENE GLYCOL (HEALTHYLAX) 3350 17 GM PACKET PO PRN (10:47)
[2024-09-01] MEDS ORDERED: BENZONATATE 200 MG CAPSULE PO PRN (10:47)
[2024-09-01] MEDS ORDERED: NICOTINE POLACRILEX 2 MG LOZENGE BC PRN (10:47)
[2024-09-01] MEDS ORDERED: ALBUTEROL SO4 HFA INHALER IH PRN (10:50)
[2024-09-01] MEDS ORDERED: levETIRAcetam 500 MG TABLET (FP) PO ONE (11:45)
[2024-09-01] MEDS ORDERED: PRENATAL VITAMINS W/ FOLIC ACID TABLET (FP) PO ONE (11:46)
[2024-09-01] MEDS: levETIRAcetam 500 MG TABLET (FP) PO SCH (12:01)
[2024-09-01] MEDS ORDERED: ACETAMINOPHEN 325 MG TABLET (FP) ONE (12:23)
[2024-09-01] MEDS: ACETAMINOPHEN 325 MG TABLET (FP) PO PRN (12:26)
[2024-09-01] MEDS: METHOCARBAMOL 500 MG TABLET PO SCH (16:00)
[2024-09-01] MEDS: MELATONIN 5 MG TABLETS PO SCH (21:03)
[2024-09-01] MEDS: diphenhydrAMINE HCL 25 MG CAPSULE (FP) PO PRN (21:03)
[2024-09-01] MEDS: THIAMINE 100 MG TABLET PO SCH (21:04)
[2024-09-01] MEDS ORDERED: MELATONIN 5 MG TABLETS PO SCH (22:00)
[2024-09-02 06:51] VITALS: RESP 18; TEMP 97.8
[2024-09-02 09:45] VITALS: BP 102/58; PULSE 72
[2024-09-02] MEDS ORDERED: METHOCARBAMOL 500 MG TABLET PO PRN ×2 (10:15→10:36)
[2024-09-02] MEDS: PRENATAL VITAMINS W/ FOLIC ACID TABLET (FP) PO SCH (10:19)
[2024-09-02] MEDS: IBUPROFEN 600 MG TABLET (FP) PO PRN (11:32)
[2024-09-02] MEDS ORDERED: BACLOFEN 10 MG TABLET (FP) PO PRN (12:14)
[2024-09-02] MEDS ORDERED: QUEtiapine FUMARATE 100 MG TABLET (FP) PO SCH (22:00)
[2024-09-02] MEDS ORDERED: PRAZOSIN HCL 1 MG CAPSULE PO SCH (22:00)
== END 2024-09-02 14:20 | disposition left against medical advice (07) | DRG 772 ==
LOC: YASAS 09:50 → Y3NR 12:22
PROVIDERS: ADMIT Neuromusculoskeletal Medicine & OMM; ATTEND Allergy & Immunology
PROC: HZ42ZZZ Group Counseling for Substance Abuse Treatment, Cognitive-Behavioral (ICD-10-PCS; principal; 2024-09-01)
DX: F14.20 Cocaine dependence, uncomplicated (principal); F10.20 Alcohol dependence, uncomplicated; F39 Unspecified mood [affective] disorder; F41.9 Anxiety disorder, unspecified; F43.10 Post-traumatic stress disorder, unspecified; F32.A Depression, unspecified; G40.909 Epilepsy, unspecified, not intractable, without status epilepticus; K21.9 Gastro-esophageal reflux disease without esophagitis; Z62.810 Personal history of physical and sexual abuse in childhood; Z91.410 Personal history of adult physical and sexual abuse; Z63.8 Other specified problems related to primary support group; Z63.0 Problems in relationship with spouse or partner; Z87.19 Personal history of other diseases of the digestive system
CPT/HCPCS: 80305; 80307; 81025; 87811; 93005; 93010